=== PATIENT | male | born 1935 | race Caucasian/White ===

== ENCOUNTER → 2023-12-08 14:43 | Outpatient (REF) | payer OTHER, SELFPAY | LOC: RCS 14:43 | PROVIDERS: ATTENDING PHYSICIAN Internal Medicine Cardiovascular Disease; FAMILY PHYSICIAN Family Medicine | DX: Z95.2 Presence of prosthetic heart valve (principal) | CPT/HCPCS: 93306 ==

== ENCOUNTER 2024-05-24 20:13 | Inpatient (IN) | payer OTHER, SELFPAY ==
[2024-05-24 15:29] VITALS: BP 132/91
[2024-05-24 16:06] LABS: % Basophils 0.2 % (0-2); % Eosinophils 0.4 % (0-6); % Immature Granulocytes 0.8 % (0-0.5); % Lymphocytes 7.7 % (20.5-51.1); % Monocytes 6.9 % (1.7-9.3); Absolute Immature Granulocytes 0.1 10^3/uL (0-0.05); Absolute Lymphocytes 0.8 10^3/uL (1.2-3.4); Absolute Monocytes 0.7 10^3/uL (0.1-0.6); Absolute Neutrophils 8.2 10^3/uL (1.4-6.5); Hematocrit 44.2 % (39.0-52.0); Hemoglobin 14.4 g/dL (13.0-18.0); Mean Corp Hgb Conc. 32.6 g/dL (33.0-37.0); Mean Corpuscular Hgb 31.2 pg (27.0-31.0); Mean Corpuscular Volume 95.7 fL (80.0-94.0); Mean Platelet Volume 10.1 fL (7.4-10.4); Nucleated Red Blood Cells % 0 % (-); Platelet Count 186 10^3/uL (130-400); Red Blood Cell Count 4.62 10^6/uL (4.70-6.10); Red Cell Dist. Width 15.7 % (11.5-14.5); White Blood Cell Count 9.7 10^3/uL (4.8-10.8)
[2024-05-24 16:19] LABS: ALT (SGPT) 26 U/L (0-50); AST (SGOT) 45 U/L (17-59); Albumin 4.3 g/dl (3.5-5.0); Alkaline Phosphatase 73 U/L (38-126); Blood Urea Nitrogen 22 mg/dl (9-20); Calcium 9.7 mg/dl (8.4-10.2); Carbon Dioxide 29 mmol/L (22-30); Chloride 92 mmol/L (98-107); Glucose 129 mg/dl (70-99); Sodium 130 mmol/L (135-145); Total Bilirubin 1.3 mg/dl (0.2-1.3); Total Protein 7.4 g/dl (6.3-8.2); eGFR > 60.00
[2024-05-24 16:26] LABS: NT-proBNP 6000 pg/ml; Troponin I < 0.012 ng/ml
--- NOTE | 2024-05-24 17:30 | ED.GENMED ---
History of Present Illness
General
Chief Complaint: Cardiac Symptoms
Source: patient
Exam Limitations: none
Time Seen by Provider: 05/24/24 17:25
Nursing documentation reviewed up to this point in time: agreed with
History of Present Illness
History of Present Illness:
The patient is an 89-year-old man with a past medical history of atrial fibrillation who reports that he has been feeling short of breath on exertion, and has had swelling of his bilateral legs for several days. Patient reports he was evaluated by
his family consultant today and referred to the emergency department for evaluation. Patient also reports intermittent mild chest pressure. He denies chest pain at this time. He denies fever and cough.
Past History
Past History
ED Past Medical History: Arrthythmia, HTN and Other (Cardiomyopathy, aortic stenosis)
ED Past Surgical History: Urological
Social History
Tobacco: Other
Alcohol: Other
Drug: None
Personal: Other
Living: with family
Employment: Other
Family History
Family History: Other
Review of Systems
Review of Systems
Allergies reviewed?: Yes
All Other Systems: ROS reviewed and negative except as documented in HPI and ROS
Constitutional: Reports no symptoms
EENT: Reports no symptoms
Respiratory: Reports trouble breathing
Cardiac: Reports chest pain
ABD/GI: Reports no symptoms
: Reports no symptoms
Musculoskeletal: Reports edema
Skin: Reports no symptoms
Endocrine: Reports no symptoms
Hematologic/Lymphatic: Reports no symptoms
Psychiatric: Reports no symptoms
Phy Exam
Physical Exam
Physical Exam:
Physical Exam
General: Patient is tachypneic at rest. Nontoxic
Neck: supple. no meningeal signs. normal psoterior pharynx
Heart: Tachycardic, irregular
Lungs: Tachypneic at rest, diminished breath sounds bilaterally
Abdomen: normal bowel sounds. not tender. no CVAT
Neuro: alert and oriented. no focal neurological deficits
Skin: no rash
Psychiatric: well kept. interactive and cooperative
Extremities: 2+ pitting edema of bilateral lower extremities. Negative Homans' sign
Course
Orders/Labs/Results
Orders:
Orders
05/24/24 15:23
EKG [Electrocardiogram (*1)] Urgent
Reason for Study: Abnormal EKG
EKG- Treatment ONCE
05/24/24 15:56
Complete Blood Count/With Diff Urgent
Comprehensive Metabolic Panel Urgent
Pro-BNP [NT-proBNP] Urgent
Troponin I Urgent
05/24/24 17:53
Furosemide [Lasix] 40 mg IV NOW STA
05/24/24 17:54
CR Chest Portable - 1 View Urgent
Comment:
Reason For Exam: SOB, CHF
Reason Study Needs to be Portable: Patient Unstable
Abnormal Lab Results
05/24/24
15:56
RBC 4.62 L 10^6/uL
(4.70-6.10)
MCV 95.7 H fL
(80.0-94.0)
MCH 31.2 H pg
(27.0-31.0)
MCHC 32.6 L g/dL
(33.0-37.0)
RDW 15.7 H %
(11.5-14.5)
Abs Immat Gran (auto) 0.1 H 10^3/uL
(0-0.05)
Absolute Neuts (auto) 8.2 H 10^3/uL
(1.4-6.5)
Absolute Lymphs (auto) 0.8 L 10^3/uL
(1.2-3.4)
Absolute Monos (auto) 0.7 H 10^3/uL
(0.1-0.6)
Immature Gran % 0.8 H %
(0-0.5)
Neutrophils % 84.0 H %
(42.2-75.2)
Lymphocytes % 7.7 L %
(20.5-51.1)
Sodium 130 L mmol/L
(135-145)
Chloride 92 L mmol/L
(98-107)
BUN 22 H mg/dl
(9-20)
Glucose 129 H mg/dl
(70-99)
05/24/24 15:56
05/24/24 15:56
Vital Signs
Initial and Last Documented VS:
Initial Vital Signs
Temp Pulse Resp BP Pulse Ox
97.5 F 60 16 132/91 96
05/24/24 15:29 05/24/24 15:29 05/24/24 15:29 05/24/24 15:29 05/24/24 15:29
Last Documented Vital Signs
Temp Pulse Resp BP Pulse Ox
97.5 F 60 16 132/91 96
05/24/24 15:29 05/24/24 15:29 05/24/24 15:29 05/24/24 15:29 05/24/24 15:29
MDM/Problems Addressed
Differential Diagnosis Includes:
Acute CHF, DVT, pneumonia, ACS
MDM/Problems Addressed:
Patient presents with acute shortness of breath and bilateral leg edema
Chronic conditions affecting care:
Aortic stenosis, cardiomyopathy, atrial fibrillation
Chronic conditions affecting care: Cardiomyopathy
Acute Exacerbation and/or Progression of Chronic Illness:
Patient can have acute exacerbation of A-fib causing CHF.
Acute Exacerbation and/or Progression of Chronic Illness: Arrhythmia
*Radiology
Radiology exam reviewed: preliminary read by ED provider (Chest x-ray reviewed by me. Bilateral pleural effusions, right greater than left)
*Pulse Oximetry
Patient hypoxic: no
*EKG
Interpreted by ED Provider?: Yes
Interpretation: abnormal
Comparison EKG: changes noted
Rate: normal
Rhythm: a-fib
[place]: normal axis
Interval: normal interval
QRS Pattern: left bundle branch block
Ischemia: non-specific ST changes
*Decontamination Technician Interpretation
Rate: tachycardiac
Interpretation: abnormal
Rhythm: a-fib
*Critical Care Note
Total Time (30-74mins, 75-104mins- exclusive of procedures): Not Applicable
Data Reviewed
Review of Other/Old Records Reveals: Operative Reports (Cardiac echo EF of 55 to 60% in 2023)
Source: patient and family
Patient Management
Social determinants of health affecting care: Living situation and Strong social support
Discussion with other providers: Hospitalist
ED Attending Note
-
Portions of this chart may have been created with voice recognition software.� Occasional wrong word or��sound alike� substitutions may have occurred due to the inherent limitations of voice recognition software.
Discharge Plan
Departure
Patient Disposition: Admit
Date of Disposition: 05/24/24
Time of Disposition: 18:46
Admit to: Telemetry
Presentation/result/management discussed w/ accepting MD/DO: Hospitalist
Patient with high blood pressure during this ER visit?: Yes
Condition: Good
Covid-19: Not Applicable
Discharge Problem:
Acute CHF, Acute respiratory distress
Prescriptions:
No Action
simvastatin 40 MG tablet
40 mg PO QPM
warfarin [Coumadin] 5 MG tablet
5 mg PO SUMOTUFRSA
Patient Comments:
pt takes 5mg coumadin on tuesday,tuesday, , tuesday, tuesday, tuesday
aspirin 81 MG tablet,chewable
81 mg PO DAILY
acetaminophen [Tylenol Extra Strength] 500 MG tablet
1,000 mg PO DAILY
pantoprazole [Protonix] 20 MG tablet,delayed release (DR/EC)
40 mg PO DAILY
warfarin [Jantoven] 2.5 MG tablet
2.5 mg PO WETH
verapamil 120 MG tablet extended release
120 mg PO DAILY
metoprolol succinate 100 MG tablet extended release 24 hr
100 mg PO DAILY
Referrals:
Valerie Momin DO [Family Provider] -
Interventions
Interventions:
*Risk Screen - Suicide Last Done: 05/24/24 15:31
*General Assessment Last Done: 05/24/24 18:42
*Neglect/Abuse Screening Last Done: 05/24/24 15:31
*ED- Fall Risk Assessment Last Done: 05/24/24 18:42
ED- Pulmonary Assessment Last Done: 05/24/24 18:42
ED- Cardiac Assessment Last Done: 05/24/24 18:42
Discharge Date and Time
Print Language: TURKMEN
[2024-05-24] MEDS: LASIX 40 MG IV (18:03)
[2024-05-24 18:29] VITALS: BMI 32.0
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
--- NOTE | 2024-05-24 19:39 | W.PN.UPDATE ---
Update Note
Progress Note Update
This is an addendum to H&P written by MATERIAL HANDLING SUPERVISOR Talisha Bassett
I saw and examined the patient.
The MATERIAL HANDLING SUPERVISOR's note was reviewed and I agree with the note.
Comment:
Mr. Eliecer Quinonez is a 89 yo man with hx essential HTN, HLD, chronic atrial fibrillation on Eliquis, HARLEY on CPAP presents to the ER with progressive shortness of breath, LE swelling and weight gain.
Triage VS: T 97.5, P 60, RR 16, BP 132/91, SpO2 96%
LABS: WBC 9.7, Hg 14.14, PLT 186, Na 130, K+ 5.0, CO2 29, BUN 22, Cr 1.0, Glucose 129, liver enzymes WNL
Trop < 0.012
BNP 6000
EKG: Afib with LBBB
CXR
IMPRESSION:
Cardiomegaly.
Pulmonary vascularity slightly increased suggesting mild CHF with moderate right and small left pleural effusions.
Acute Heart Failure Exacerbation, unknown EF
-admit to telemetry
-continue Lasix 40mg IV BID
-TTE
-Cardiology consult
-daily weights, strict I/O
Atrial fibrillation
-SALES AND MERCHANDISING ASSOCIATE Verapamil, Metoprolol, Eliquis
Remainder of plan per MATERIAL HANDLING SUPERVISOR note
[2024-05-24 20:01] VITALS: BP 118/88
[2024-05-24 20:54] VITALS: BP 148/98; BMI 31.2
[2024-05-24 21:12] VITALS: BMI 31.2
[2024-05-24] MEDS: ELIQUIS 5 MG PO (21:33)
[2024-05-24 22:16] VITALS: BP 121/93
[2024-05-24] MEDS: TOPROL XL 50 MG PO (22:17)
--- NOTE | 2024-05-24 22:25 | PTCARENOTE ---
Pt admitted to room 2242. AFib with HR 120s on monitor. Pt ambulates with x 1 assist and RW. Denies pain. QUESADA. Pt oriented to the room, call jang in reach
[2024-05-25] VITALS (7 sets, daily range): BP systolic 84–137; BP diastolic 50–88; BMI 30.9
[2024-05-25 05:10] LABS: Blood Urea Nitrogen 19 mg/dl (9-20); Calcium 9.1 mg/dl (8.4-10.2); Carbon Dioxide 31 mmol/L (22-30); Chloride 93 mmol/L (98-107); Estimated Creatinine Clearance 54 ml/min; Glucose 112 mg/dl (70-99); HDL Cholesterol 53 mg/dl; LDL Cholesterol, Calculated 40 mg/dl; Magnesium 1.8 mg/dl (1.6-2.3); Potassium 4.4 mmol/L (3.5-5.1); Sodium 131 mmol/L (135-145); Total Cholesterol 113 mg/dl (50-199); Triglyceride 102 mg/dl (10-149); Very Low Density Lipoprotein 20 mg/dl (0-30); eGFR > 60.00
[2024-05-25 05:39] LABS: TSH Reflex To Free T4 2.21 uIU/ml (0.47-4.68)
--- NOTE | 2024-05-25 07:40 | W.PN.HOSP.TC ---
Today's Communication/Plan
-
See plan
Assessment / Plan
Assessment / Plan
Physical Exam
General: Not in acute distress
HEENT: Normocephalic, Moist mucous membranes and Atraumatic
Respiratory: Clear to Auscultation Bilaterally
Cardiac: S1/S2 and Irregularly Irregular Rhythm
GI: Soft, Non Tender, Non Distended and Normal Bowel Sounds
Musculoskeletal: No Cyanosis and Other (b/l LE edema)
Skin: Warm. Dry.
Neuro: AAO x 3 and Nonfocal/grossly intact
Psych: Calm
Assessment/Plan
89 y/o male with past medical history of essential hypertension, hyperlipidemia, CAD, heart failure, chronic atrial fibrillation on Eliquis, BPH, GERD, HTN, HLD and HARLEY on CPAP presented to the ER with progressive shortness of breath, bilateral
lower extremity swelling and weight gain of about 30 lbs above his baseline. He also reported chest pressure. On the day of presentation, he had been evaluated by his pugger helper, and sent to the emergency department for further evaluation.
Triage VS: T 97.5, P 60, RR 16, BP 132/91, SpO2 96%
LABS: WBC 9.7, Hg 14.14, PLT 186, Na 130, K+ 5.0, CO2 29, BUN 22, Cr 1.0, Glucose 129, liver enzymes WNL
Trop < 0.012
BNP 6000
EKG: Afib with LBBB
CXR
IMPRESSION:
Cardiomegaly.
Pulmonary vascularity slightly increased suggesting mild CHF with moderate right and small left pleural effusions.
Acute Heart Failure Exacerbation
Presentation with shortness of breath and weight gain
Acute hypoxic respiratory failure
New biventricular failure, RV dilated
-Continue to monitor in IVU
-Lasix 40 mg IV BID--> increased to 80 mg IV BID
-TTE with new biventricular failure, RV dilated, patient does have a history of virus in March 2024
-Increase Toprol XL from 50 mg daily to 50 mg BID
-Stop Verapamil given reduced ventricular function
-Cardiology consult
-Daily weights, strict I/O
-Cardiac cath on Tuesday05/28/24 unless troponins increase significantly before that
Neck Tightness
-Likely musculoskeletal
-Check troponins to ensure no ACS
Atrial fibrillation
-CARD GRINDER HELPER Verapamil stopped. Metoprolol succinate increased given new RV failure above
-Continue Eliquis
Hypervolemic hyponatremia
- Sodium lows 130s -- stable
- Diuretics, fluid restriction
- Monitor BMP
Coronary artery disease
-s/p TAVR
# BPH
- finasteride continued
# GERD
- Protonix continued
# Hyperlipidemia
- Statin continued
# Hypertension
- Medications as above
# DVT prophylaxis
- Eliquis
# CODE STATUS
- Full code
Anticipated Discharge: > 48 hours
Subjective/Interval History
-
Date of Service: May 25, 2024
Patient was seen and examined. He denied any chest pain, shortness of breath or any other complaints.
Objective Data
-
Labs:
Laboratory Results
05/25/24
04:31
Sodium 131 L
Potassium 4.4
Chloride 93 L
Carbon Dioxide 31 H
BUN 19
Creatinine 1.0
Glucose 112 H
Calcium 9.1
Vital Signs:
Vital Signs
Temp Pulse Resp BP Pulse Ox
97.7 F 97 20 105/50 99
05/25/24 07:32 05/25/24 05:15 05/25/24 07:32 05/25/24 04:25 05/25/24 07:32
I&O
05/24/24 05/25/24 05/26/24
06:59 06:59 06:59
Output Total 900 / 900
Balance -900 / -900
[2024-05-25] MEDS: LASIX 40 MG IV (08:34)
[2024-05-25] MEDS: PROSCAR 5 MG PO (08:34)
[2024-05-25] MEDS: LIPITOR 20 MG PO (08:34)
[2024-05-25] MEDS: ELIQUIS 5 MG PO ×2 (08:34→20:03)
[2024-05-25] MEDS: PROTONIX 40 MG PO (08:34)
--- NOTE | 2024-05-25 09:03 | W.PN.CD ---
Addendum entered and electronically signed by Messi Travis MD 05/25/24 13:06:
I saw and examined the patient.
The AUTOMOTIVE METALSMITH's note was reviewed and I agree with the note.
Comment: Patient had neck pain and feeling sweaty during TTE. He is feeling improved. He thinks his breathing is getting better. On exam, he has tenderness in the back of his neck, irregularly irregular rhythm with a rapid rate, he has a labored
respiratory effort using his abdomen to breathe. No rales or rhonchi are appreciated. Extremities have 2+ pitting edema through LUIS stockings up through the legs and thighs. Echocardiogram today shows new biventricular failure with reduced
function of the RV and the LV to approximate 20%. Rapid ventricular rhythm was noted. TAVR is stable. EKG shows A-fib with RVR and left bundle branch block. Overall, he is in severe CHF with a new Giovany reduced RV and LV function. Then his son
was at the bedside and adds to the history. He does report having a viral-like illness at the end of March. Differential diagnosis includes viral induced cardiomyopathy, tachycardia induced cardiomyopathy given he does not sense his atrial
fibrillation, less likely but still in differential is ischemia. Will check a troponin. Plan will be for aggressive diuresis and rate control over the weekend with a plan for a car catheterization on Tuesday. This can be done sooner if clinically
indicated. Will need to stop his verapamil given the LV dysfunction. Likely TAVR was stable on echo. Left bundle branch block has been seen in the past but seems to be intermittent. Plans discussed with son, patient and Dr. Morejon.
Original Note:
Today's Communication / Plan
-
continue IV diuresis
check echo
Impression / Plan
-
HFpEF - acute on chronic.
- agree with IV diuresis 40mg BID.
- monitor daily weights, I&Os.
- HF education, TEDS stockings.
- check echo today.
- consider SGLT2i or additional GDMT if LVEF is reduced on echo.
Afib - permanent.
- rates in 90s on Toprol and Verapamil, continue.
- OAC Eliquis 5mg BID.
TAVR - stable on echo 11/2023.
- update echo today.
CAD - nonobstructive disease on cath 2019.
- stable w/o angina.
HTN - stable, continue medical therapy.
Physical Exam
Vital Signs/Labs
Vital Signs
Temp Pulse Resp BP Pulse Ox
97.7 F 92 20 137/88 99
05/25/24 07:32 05/25/24 07:45 05/25/24 07:32 05/25/24 07:32 05/25/24 08:26
05/24/24 05/25/24 05/26/24
06:59 06:59 06:59
Actual Weight 191 lb 5.78 oz
05/24/24 15:56
05/25/24 04:31
Magnesium 1.8 mg/dl (1.6-2.3) 05/25/24 04:31
Triglycerides 102 mg/dl (10-149) 05/25/24 04:31
LDL Cholesterol, Calc 40 mg/dl 05/25/24 04:31
VLDL Cholesterol, Calc 20 mg/dl (0-30) 05/25/24 04:31
HDL Cholesterol 53 mg/dl 05/25/24 04:31
05/24/24
15:56
[id number] Pept 6000
LAB Results
05/24/24
15:56
Troponin I < 0.012
Physical Exam
Constitutional: No acute distress
EENT: Anicteric and Moist mucous membranes
Cardiovascular: Rhythm/rate is irregular and Pedal edema present (+2 pitting edema b/l LE )
Respiratory: Respiratory effort normal and Other (diminished b/l bases)
GI: Soft, Non tender and Normal bowel sounds
Neuro/Psych: AO x 3
Other: Skin (warm, dry)
Data Reviewed
-
Date of Service: May 25, 2024
EKG: Tracing Personally Visualized and interpreted (Afib, LBBB 100 bpm)
Echo: Report Reviewed by me (11/2023: TDS, EF 55-60%, normal RV size/function, s/p TAVR 23mm Silva 3 ultra TAVR mean gradient 11 mmHg, PASP 47 mmHg)
X-Ray/CT/US/MRI/NUC/PET: Report Reviewed by me (CXR: Pulmonary vascularity slightly increased suggesting mild CHF with moderate right and small left pleural effusions.)
Labs: Labs Reviewed by me
Old Records: Reviewed
[2024-05-25] MEDS: TOPROL XL 50 MG PO ×2 (11:14→20:04)
[2024-05-25] MEDS: TYLENOL 650 MG PO ×2 (12:37→20:07)
[2024-05-25 12:51] LABS: Troponin I < 0.012 ng/ml
--- NOTE | 2024-05-25 14:20 | CM ---
CM following for DC planning needs.
CM met w/ patient at bedside to complete initial assessment.
Pt. resides w/ son in a private, [facility]. Pt. is functionally indep. w/ ADLs, mobility with use of a rollator walker.
Pt. has no other DME in the home per his report.
Pt. is not open to VN.
Pt. has RX plan and uses [facility] in [facility] for prescription needs.
Goal is for home, no needs.
CM to follow.
--- NOTE | 2024-05-25 14:37 | CM ---
Priced the following medications thru patient's RX plan, [facility]- [phone] in the event that either medication is initiated:
Jardiance- est. $151/30 d supply
Farxiga- est. $ 144.76/ 30 d supply
[2024-05-25] MEDS: LASIX 80 MG IV (16:00)
--- NOTE | 2024-05-25 17:55 | PTCARENOTE ---
At @11:24 after a bedside Echo, pt reported 8/10 neck tightness, sweating and appeared short of breath which he denied. Pt in atrial fib @120's , 97% on 2L with resp rate of 24 and abdominal breathing pattern. Aleena Chen BURNER TENDER notified, ECG was
done. Pt seen soon after by , diuretic was increased , troponin was sent which was negative. Plan of care reviewed with him to aggressively diurese him over the weekend and have a cardiac cath next week. Pt stated understanding. Pt
given tylenol, back and neck massage and heating pad for neck discomfort with some relief. Pt noted to be at risk of falling, fall precautions in place, pt is calling for assistance. Telemetry shows atrial fib with LBBB at a rate of 100-120's
mainly.
[2024-05-26] VITALS (10 sets, daily range): BP systolic 81–119; BP diastolic 50–83
[2024-05-26 04:25] LABS: Blood Urea Nitrogen 21 mg/dl (9-20); Calcium 9.4 mg/dl (8.4-10.2); Carbon Dioxide 40 mmol/L (22-30); Chloride 88 mmol/L (98-107); Estimated Creatinine Clearance 45 ml/min; Glucose 116 mg/dl (70-99); Magnesium 1.8 mg/dl (1.6-2.3); Potassium 4.7 mmol/L (3.5-5.1); Sodium 133 mmol/L (135-145); eGFR 58.53
--- NOTE | 2024-05-26 07:43 | W.PN.HOSP.TC ---
Today's Communication/Plan
-
See plan
Assessment / Plan
Assessment / Plan
Physical Exam
General: Not in acute distress
HEENT: Normocephalic, Moist mucous membranes and Atraumatic
Respiratory: Clear to Auscultation Bilaterally
Cardiac: S1/S2 and Irregularly Irregular Rhythm
GI: Soft, Non Tender, Non Distended and Normal Bowel Sounds
Musculoskeletal: No Cyanosis and Other (b/l LE edema)
Skin: Warm. Dry.
Neuro: AAO x 3 and Nonfocal/grossly intact
Psych: Calm
Assessment/Plan
89 y/o male with past medical history of essential hypertension, hyperlipidemia, CAD, heart failure, chronic atrial fibrillation on Eliquis, BPH, GERD, HTN, HLD and HARLEY on CPAP presented to the ER with progressive shortness of breath, bilateral
lower extremity swelling and weight gain of about 30 lbs above his baseline. He also reported chest pressure. On the day of presentation, he had been evaluated by his store product demonstrator, and sent to the emergency department for further evaluation.
Triage VS: T 97.5, P 60, RR 16, BP 132/91, SpO2 96%
LABS: WBC 9.7, Hg 14.14, PLT 186, Na 130, K+ 5.0, CO2 29, BUN 22, Cr 1.0, Glucose 129, liver enzymes WNL
Trop < 0.012
BNP 6000
EKG: Afib with LBBB
CXR
IMPRESSION:
Cardiomegaly.
Pulmonary vascularity slightly increased suggesting mild CHF with moderate right and small left pleural effusions.
Acute Heart Failure Exacerbation
Presentation with shortness of breath and weight gain
Acute hypoxic respiratory failure
New biventricular failure, RV dilated
-Continue to monitor in IVU
-Lasix 40 mg IV BID--> increased on 05/25/24 to 80 mg IV BID, continue
-TTE with new biventricular failure, RV dilated, patient does have a history of virus in March 2024
-Increased on 05/25/24 Toprol XL from 50 mg daily to 50 mg BID
-Verapamil stopped given reduced ventricular function
-Cardiology consult appreciated
-Daily weights, strict I/O
-Cardiac cath on Tuesday05/28/24 unless symptoms change before then needing cath before that
-NPO after midnight TOMORROW night and hold Eliquis starting TOMORROW night
Neck Tightness
-Likely musculoskeletal
-Troponins negative
Atrial fibrillation
-UNHAIRING INSPECTOR Verapamil stopped. Metoprolol succinate increased given new RV failure above
-Continue Eliquis
Hypervolemic hyponatremia
- Sodium lows 130s -- stable
- Diuretics, fluid restriction
- Monitor BMP
Coronary artery disease
-s/p TAVR
# BPH
- finasteride continued
# GERD
- Protonix continued
# Hyperlipidemia
- Statin continued
# Hypertension
- Medications as above
# DVT prophylaxis
- Eliquis
# CODE STATUS
- Full code
Anticipated Discharge: > 48 hours
Subjective/Interval History
-
Date of Service: May 26, 2024
Patient was seen and examined. He denied any chest pain or shortness of breath or any other new symptoms or complaints.
Objective Data
-
Labs:
Laboratory Results
05/26/24
03:41
Sodium 133 L
Potassium 4.7
Chloride 88 L
Carbon Dioxide 40 H
BUN 21 H
Creatinine 1.2
Glucose 116 H
Calcium 9.4
Vital Signs:
Vital Signs
Temp Pulse Resp BP Pulse Ox
97.8 F 92 18 91/58 99
05/26/24 03:25 05/26/24 05:00 05/26/24 03:25 05/26/24 03:30 05/26/24 03:25
I&O
05/25/24 05/26/24 05/27/24
06:59 06:59 06:59
Output Total 900 / 900 2350 / 2350
Balance -900 / -900 -2350 / -2350
[2024-05-26] MEDS: TOPROL XL PO ×2 (08:02→22:44)
[2024-05-26] MEDS: LIPITOR 20 MG PO (08:12)
[2024-05-26] MEDS: PROTONIX 40 MG PO (08:12)
[2024-05-26] MEDS: ELIQUIS 5 MG PO ×2 (08:13→20:02)
[2024-05-26] MEDS: COLACE 100 MG PO ×2 (08:13→20:02)
[2024-05-26] MEDS: PROSCAR 5 MG PO (08:13)
[2024-05-26] MEDS: LASIX 80 MG IV ×2 (10:01→16:20)
--- NOTE | 2024-05-26 10:20 | W.PN.CD ---
Addendum entered and electronically signed by Messi Travis MD 05/26/24 14:06:
I saw and examined the patient.
The RACK ROOM WORKER's note was reviewed and I agree with the note.
Comment: He is feeling better, looks comfortable in the chair. On exam he nolonger uses abdomen to breath. His lungs cta, irreg irreg, 2+ pitting with TEDS. Assessment is HFrEF, new cmy will continue diuiresis, plan for cath tuesday, npo p mn
tomorrow and hold Eliquis tomorrow pm. Will continue bb for af as rates better.
Will follow
Original Note:
Today's Communication / Plan
-
-continue IV lasix
-cardiac cath on Tuesday (will place Eliquis on hold starting tomorrow evening and give full dose ASA in AM of procedure)
-continue increased BB as tolerated, velásquez SGLT2I
Impression / Plan
-
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
-continue IV diuresis, which requires intensive monitoring
-Echo 05/25/24: severely reduced left ventricular systolic function. Left ventricular ejection fraction is 15-20%. Global hypokinesis. Abnormal (paradoxical) septal motion consistent with right ventricular (RV) volume overload and/or elevated RV
end-diastolic pressure. Right ventricular enlargement with reduced systolic function. Well-seated, normally functioning bioprosthetic aortic valve (status post TAVR). Compared to the prior echo on 12/04/2023 left and right ventricular function were
normal on the prior study, this is a significant change in LV and RV function.
-regarding new cardiomyopathy: He does report having a viral-like illness at the end of March. Differential diagnosis includes viral induced cardiomyopathy, tachycardia induced cardiomyopathy given he does not sense his atrial fibrillation, less
likely but still in differential is ischemia. Trop WNL.
-Plan will be for aggressive diuresis and rate control over the weekend with a plan for cardiac catheterization on Tuesday. This can be done sooner if clinically indicated.
-as a result of reduced EF, verapamil stopped. Metoprolol dosing increased. Continue as able. BP was on low end this AM, but now improved so nursing will try and give metoprolol. Parameters in order. Otherwise, will velásquez SGLT2i. Other meds limited
by BP currently.
Afib - permanent.
- rates currently 90's
- continue increased metoprolol (as able- see above) and monitor telemetry
-continue Eliquis 5mg BID - will hold after tomorrow night's dose for cath Tuesday- resume post-cath when safe.
TAVR - stable on echo
CAD - nonobstructive disease on cath 2019.
-repeat cath Tuesday as above with new CM
-hold Eliquis after tomorrow night and give full dose ASA AM of cath
HTN -
-monitor with med adjustments, BP on low end at times
LBBB:
-Left bundle branch block has been seen in the past, but seems to be intermittent.
Physical Exam
Vital Signs/Labs
Vital Signs
Temp Pulse Resp BP Pulse Ox
97.9 F 94 18 111/83 97
05/26/24 07:51 05/26/24 07:51 05/26/24 07:51 05/26/24 10:01 05/26/24 07:51
05/25/24 05/26/24 05/27/24
06:59 06:59 06:59
Actual Weight 86.8 kg 84.4 kg
05/24/24 15:56
05/26/24 03:41
Magnesium 1.8 mg/dl (1.6-2.3) 05/26/24 03:41
Triglycerides 102 mg/dl (10-149) 05/25/24 04:31
LDL Cholesterol, Calc 40 mg/dl 05/25/24 04:31
VLDL Cholesterol, Calc 20 mg/dl (0-30) 05/25/24 04:31
HDL Cholesterol 53 mg/dl 05/25/24 04:31
05/24/24
15:56
Zcm-L-Hvertmtginj Pept 6000
LAB Results
05/24/24 05/25/24
15:56 12:18
Troponin I < 0.012 < 0.012
Physical Exam
Constitutional: No acute distress
EENT: Anicteric
Cardiovascular: Rhythm/rate is irregular and Pedal edema present (mild BLE)
Respiratory: Crackles Present (mild bases) and Other (on O2 by NC)
Neuro/Psych: AO x 3
Data Reviewed
-
Date of Service: May 26, 2024
EKG: Other (AFIB 90's)
Echo: Report Reviewed by me (as noted)
Labs: Labs Reviewed by me
[2024-05-26] MEDS: TOPROL XL 50 MG PO (12:47)
--- NOTE | 2024-05-26 18:02 | PTCARENOTE ---
Pt encouraged to sit OOB in chair earlier and has been up sitting up all day. O2 weaned down to 1 L/min earlier and will try him on RA now. knee high teds on bilat.
[2024-05-26] MEDS: FLUSH (NSS) 1 FLUSH IV (20:03)
--- NOTE | 2024-05-26 22:06 | PTCARENOTE ---
Received pt at change of shift OOB in chair. Family at bedside. Pt AAOx3. A-fib on the monitor. HR 100. Pt denies any pain or SOB. on 1.5L O2 with SpO2 96%. Pt educated on importance of fluid restriction. Verbalized understanding. Informed pt to
call before getting out of bed. Call jang within reach.
[2024-05-27] VITALS (7 sets, daily range): BP systolic 92–116; BP diastolic 56–86; BMI 29.0
[2024-05-27 04:12] LABS: Blood Urea Nitrogen 21 mg/dl (9-20); Carbon Dioxide 37 mmol/L (22-30); Chloride 86 mmol/L (98-107); Estimated Creatinine Clearance 41 ml/min; Glucose 111 mg/dl (70-99); Magnesium 1.8 mg/dl (1.6-2.3); Potassium 3.7 mmol/L (3.5-5.1); Sodium 131 mmol/L (135-145); eGFR 53.17
[2024-05-27] MEDS: TYLENOL 650 MG PO (04:49)
--- NOTE | 2024-05-27 05:15 | PTCARENOTE ---
Pt with c/o back pain. Gown strings tight across back-gown opened, Tylenol given and pt repositioned on his side. Pt also stated he felt a little dizzy b/p 100/76. afib on telemetry with rates 90-115
--- NOTE | 2024-05-27 08:20 | W.PN.CD ---
Today's Communication / Plan
-
hold lasix
continue bb
npo after midnight and eliquis hold tonight for cath tomorrow.
Impression / Plan
-
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
-continue IV diuresis, which requires intensive monitoring
-wt down from 198lbs to 179 will hold lasix today
-regarding new cardiomyopathy: He does report having a viral-like illness at the end of March. Differential diagnosis includes viral induced cardiomyopathy, tachycardia induced cardiomyopathy given he does not sense his atrial fibrillation, less
likely but still in differential is ischemia. Trop WNL.
-cath tomorrow
-BB increased as verapamil stopped, Will velásquez SGLT2i. Other meds limited by BP currently.
Afib - permanent.
- rates currently 90's
- continue increased metoprolol (as able- see above) and monitor telemetry
-continue Eliquis 5mg BID - will hold after tomorrow night's dose for cath Tuesday- resume post-cath when safe.
TAVR - stable on echo
CAD - nonobstructive disease on cath 2019.
-repeat cath Tuesday as above with new CM
-hold Eliquis after tomorrow night and give full dose ASA AM of cath
HTN -
-monitor with med adjustments, BP on low end at times
LBBB:
-Left bundle branch block has been seen in the past, but seems to be intermittent.
Subjective;
Sleeping well flat no complaints
Data:
Echo 05/25/24: severely reduced left ventricular systolic function. Left ventricular ejection fraction is 15-20%. Global hypokinesis. Abnormal (paradoxical) septal motion consistent with right ventricular (RV) volume overload and/or elevated RV
end-diastolic pressure. Right ventricular enlargement with reduced systolic function. Well-seated, normally functioning bioprosthetic aortic valve (status post TAVR). Compared to the prior echo on 12/04/2023 left and right ventricular function were
normal on the prior study, this is a significant change in LV and RV function.
Physical Exam
Vital Signs/Labs
Vital Signs
Temp Pulse Resp BP Pulse Ox
98.3 F 111 20 116/86 94
05/27/24 06:55 05/27/24 07:45 05/27/24 06:55 05/27/24 06:57 05/27/24 06:57
05/26/24 05/27/24 05/28/24
06:59 06:59 06:59
Actual Weight 186 lb 1.122 oz
05/24/24 15:56
05/27/24 03:07
Magnesium 1.8 mg/dl (1.6-2.3) 05/27/24 03:07
Triglycerides 102 mg/dl (10-149) 05/25/24 04:31
LDL Cholesterol, Calc 40 mg/dl 05/25/24 04:31
VLDL Cholesterol, Calc 20 mg/dl (0-30) 05/25/24 04:31
HDL Cholesterol 53 mg/dl 05/25/24 04:31
05/24/24
15:56
Yan-Z-Ugdznayydys Pept 6000
LAB Results
05/24/24 05/25/24
15:56 12:18
Troponin I < 0.012 < 0.012
Physical Exam
Constitutional: No acute distress
Cardiovascular: Pedal edema is absent, JVD pressure is normal, Systolic murmur absent, Diastolic murmur absent and Rhythm/rate is irregular
Respiratory: Respiratory effort normal, Lungs clear to auscul., Wheeze Absent and Crackles Absent
Neuro/Psych: AO x 3
Data Reviewed
-
Date of Service: May 27, 2024
EKG: Other (tele fib rate controlled)
--- NOTE | 2024-05-27 08:32 | W.PN.HOSP.TC ---
Today's Communication/Plan
-
NPO after midnight and eliquis hold tonight for cath tomorrow. Lasix stopped.
Assessment / Plan
Assessment / Plan
Physical Exam
General: Not in acute distress
HEENT: Normocephalic, Moist mucous membranes and Atraumatic
Respiratory: Clear to Auscultation Bilaterally
Cardiac: S1/S2 and Irregularly Irregular Rhythm
GI: Soft, Non Tender, Non Distended and Normal Bowel Sounds
Musculoskeletal: No Cyanosis and Other (b/l LE edema)
Skin: Warm. Dry.
Neuro: AAO x 3 and Nonfocal/grossly intact
Psych: Calm
Assessment/Plan
89 y/o male with past medical history of essential hypertension, hyperlipidemia, CAD, heart failure, chronic atrial fibrillation on Eliquis, BPH, GERD, HTN, HLD and HARLEY on CPAP presented to the ER with progressive shortness of breath, bilateral
lower extremity swelling and weight gain of about 30 lbs above his baseline. He also reported chest pressure. On the day of presentation, he had been evaluated by his director of strategic programs, and sent to the emergency department for further evaluation.
Triage VS: T 97.5, P 60, RR 16, BP 132/91, SpO2 96%
LABS: WBC 9.7, Hg 14.14, PLT 186, Na 130, K+ 5.0, CO2 29, BUN 22, Cr 1.0, Glucose 129, liver enzymes WNL
Trop < 0.012
BNP 6000
EKG: Afib with LBBB
CXR
IMPRESSION:
Cardiomegaly.
Pulmonary vascularity slightly increased suggesting mild CHF with moderate right and small left pleural effusions.
Acute Heart Failure Exacerbation
Presentation with shortness of breath and weight gain
Acute hypoxic respiratory failure
New biventricular failure, RV dilated
-Continue to monitor in IVU
-Lasix 40 mg IV BID--> increased on 05/25/24 to 80 mg IV BID --> now being held as per cardiology
-TTE with new biventricular failure, RV dilated, patient does have a history of virus in March 2024
-Increased on 05/25/24 Toprol XL from 50 mg daily to 50 mg BID
-Verapamil stopped given reduced ventricular function
-Cardiology consult appreciated
-Daily weights, strict I/O
-Cardiac cath on Tuesday05/28/24 unless symptoms change before then needing cath before that
-NPO after midnight and eliquis hold tonight for cath tomorrow. Lasix stopped.
Neck Tightness
-Likely musculoskeletal
-Troponins negative
Atrial fibrillation
-RESEARCH PROGRAMMER Verapamil stopped. Metoprolol succinate increased given new RV failure above
-Continue Eliquis
Hypervolemic hyponatremia
- Sodium lows 130s -- stable
- Diuretics, fluid restriction
- Monitor BMP
Coronary artery disease
-s/p TAVR
# BPH
- finasteride continued
# GERD
- Protonix continued
# Hyperlipidemia
- Statin continued
# Hypertension
- Medications as above
# DVT prophylaxis
- Eliquis
# CODE STATUS
- Full code
Anticipated Discharge: 24 - 48 hours
Subjective/Interval History
-
Date of Service: May 27, 2024
Patient was seen and examined. He denied any complaints.
Objective Data
-
Labs:
Laboratory Results
05/27/24
03:07
Sodium 131 L
Potassium 3.7
Chloride 86 L
Carbon Dioxide 37 H
BUN 21 H
Creatinine 1.3
Glucose 111 H
Calcium 9.0
Vital Signs:
Vital Signs
Temp Pulse Resp BP Pulse Ox
98.3 F 111 20 116/86 94
05/27/24 06:55 05/27/24 07:45 05/27/24 06:55 05/27/24 06:57 05/27/24 06:57
I&O
05/26/24 05/27/24 05/28/24
06:59 06:59 06:59
Intake Total 360 / 360
Output Total 2350 / 2350 2575 / 2575
Balance -2350 / -2350 -2215 / -2215
[2024-05-27] MEDS: PROTONIX 40 MG PO (09:11)
[2024-05-27] MEDS: LIPITOR 20 MG PO (09:12)
[2024-05-27] MEDS: COLACE 100 MG PO ×2 (09:12→19:42)
[2024-05-27] MEDS: ELIQUIS 5 MG PO (09:12)
[2024-05-27] MEDS: TOPROL XL 50 MG PO ×2 (09:13→19:43)
[2024-05-27] MEDS: PROSCAR 5 MG PO (09:13)
[2024-05-27] MEDS: LASIX IV (09:31)
--- NOTE | 2024-05-27 18:26 | PTCARENOTE ---
Pt on RA this afternoon, O2 sat 92-93%. He sat OOB in chair most of the day today, jackeline well.
[2024-05-27] MEDS: FLUSH (NSS) 1 FLUSH IV (19:43)
--- NOTE | 2024-05-27 22:45 | PTCARENOTE ---
Received pt at change of shift OOB in chair. Family at bedside. A-fib on the monitor. BP 109/76, HR 108. Denies any pain or SOB. SpO2 92% on RA. Assisted pt back to bed. Discussed with pt NPO status after midnight. pt verbalized understanding. Call
jang within reach.
[2024-05-28] VITALS (25 sets, daily range): BP systolic 86–122; BP diastolic 56–102; BMI 29.2
[2024-05-28 05:33] LABS: Blood Urea Nitrogen 24 mg/dl (9-20); Calcium 9.2 mg/dl (8.4-10.2); Carbon Dioxide 36 mmol/L (22-30); Chloride 87 mmol/L (98-107); Estimated Creatinine Clearance 43 ml/min; Glucose 123 mg/dl (70-99); Magnesium 1.9 mg/dl (1.6-2.3); Potassium 3.8 mmol/L (3.5-5.1); Sodium 130 mmol/L (135-145); eGFR > 60.00
[2024-05-28] MEDS: ASPIRIN 325 MG PO (06:32)
--- NOTE | 2024-05-28 06:34 | W.PN.HOSP.TC ---
Today's Communication/Plan
-
Post-cath care as per Cardio
Assessment / Plan
Assessment / Plan
Physical Exam
General: Not in acute distress, appears comfortable at this time
HEENT: Normocephalic, Moist mucous membranes and Atraumatic, hard of hearing
Respiratory: Clear to Auscultation Bilaterally
Cardiac: S1/S2 and Irregularly Irregular Rhythm, systolic murmur /
GI: Soft, Non Tender, Non Distended and Normal Bowel Sounds
Musculoskeletal: No Cyanosis, no edema lower ext's
Skin: Warm. Dry.
Neuro: awake alert conversant coherent
Psych: Calm
Assessment/Plan
89 y/o male with past medical history of essential hypertension, hyperlipidemia, CAD, heart failure, chronic atrial fibrillation on Eliquis, BPH, GERD, HTN, HLD and HARLEY on CPAP presented to the ER with progressive shortness of breath, bilateral
lower extremity swelling and weight gain of about 30 lbs above his baseline. He also reported chest pressure. On the day of presentation, he had been evaluated by his finishing machine operator, and sent to the emergency department for further evaluation.
Trop < 0.012
BNP 6000
EKG: Afib with LBBB
CXR
IMPRESSION:
Cardiomegaly.
Pulmonary vascularity slightly increased suggesting mild CHF with moderate right and small left pleural effusions.
Acute Heart Failure Exacerbation
Presentation with shortness of breath and weight gain
Acute hypoxic respiratory failure
New biventricular failure, RV dilated
-IVU admit
-Lasix 40 mg IV BID--> increased on 05/25/24 to 80 mg IV BID --> on hold as per cardio
-TTE with new biventricular failure, RV dilated
-Increased on 05/25/24 Toprol XL from 50 mg daily to 50 mg BID
-Verapamil stopped d/t reduced EF
-Cardiology consult appreciated
-Daily weights, strict I/O
Cardiac cath Tuesday05/28/24 appreciated
- extensive calcifications but no discrete stenosis, no ischemic source new cardiomyopathy
Cont hold Eliquis Lasix as per Cardio
Neck Tightness
-Likely musculoskeletal
-Troponins negative
Atrial fibrillation
-TEA BLENDER Verapamil stopped. Metoprolol succinate increased given new RV failure above
-Continue hold Eliquis as per Cardio
Hypervolemic hyponatremia
- Sodium lows 130s -- stable
- Diuretics, fluid restriction
- Monitor
Coronary artery disease
s/p TAVR
# BPH
- finasteride continued
# GERD
- Protonix continued
# Hyperlipidemia
- Statin continued
# Hypertension
- cotn metoprolol
# DVT prophylaxis
- Eliquis on hold as per cardio, SCD
# CODE STATUS
- Full code
discussed with patient and patient's edgar Vargas Jr
I spent a total of 40 minutes with the patient or on the floor. More than 50% of this time involved counseling and coordination of care.
Anticipated Discharge: 24 - 48 hours
Subjective/Interval History
-
Date of Service: May 28, 2024
Status post cath. stable respiratory status on room air. Reports pain from right groin cath site but otherwise no acute distress resting comfortably in bed. Edgar Vargas Jr present during evaluation.
Objective Data
-
Labs:
Laboratory Results
05/28/24
04:33
Sodium 130 L
Potassium 3.8
Chloride 87 L
Carbon Dioxide 36 H
BUN 24 H
Creatinine 1.1
Glucose 123 H
Calcium 9.2
Vital Signs:
Vital Signs
Temp Pulse Resp BP Pulse Ox
97.5 F 95 20 120/75 96
05/28/24 04:13 05/28/24 05:15 05/28/24 04:13 05/28/24 04:13 05/28/24 04:30
I&O
05/26/24 05/27/24 05/28/24
06:59 06:59 06:59
Intake Total 360 / 360 240 / 240
Output Total 2350 / 2350 2575 / 2575 500 / 500
Balance -2350 / -2350 -2215 / -2215 -260 / -260
--- NOTE | 2024-05-28 07:52 | W.PN.CD ---
Today's Communication / Plan
-
Cardiac catheterization to clarify coronary anatomy.
Case management to velásquez SGLT2i.
Impression / Plan
-
Impression/Plan: 89 y/o male with HTN, permanent atrial fibrillation, LBBB, severe aortic valve stenosis s/p TAVR (10/2019) and non-obstructive CAD on pre-TAVR cath admitted with new dilated cardiomyopathy and acute HFrEF.
#HFrEF/cardiomyopathy
-Acute on chronic HF, SUSTAINABLE COMMUNITIES DESIGNER is new.
-LVEF 15-20%, previously normal.
-Continue IV diuresis, which requires intensive monitoring
-Presentation weight 88.7 kg. Current weight 81.9 kg.
-Regarding new cardiomyopathy: He does report having a viral-like illness at the end of March. Differential diagnosis includes viral induced cardiomyopathy, tachycardia induced cardiomyopathy given he does not sense his atrial fibrillation, less
likely but still in differential is ischemia. Trop WNL.
-Metoprolol succinate increased to 50 mg BID and verapamil stopped.
-Will velásquez SGLT2i. Further GDMT currently limited by BP.
-Cardiac catheterization today to clarify coronary anatomy.
#Atrial fibrillation
-Permanent.
-Rates currently 90-110's.
-Rate control with metoprolol succinate 50 mg BID.
-CHADS2-Vasc = 5 (CHF, HTN, Age x2, vascular disease).
-Therapeutic anticoagulation with apixaban 5 mg BID, on hold for cath today. Resume post-cath.
#TAVR
-Chronic, stable on echo.
#CAD
-Chronic, nonobstructive disease on cath 2019.
-Repeat cath today as above with new CM.
#HTN
-Chronic, stable.
-Monitor with med adjustments.
#LBBB
-Left bundle branch block has been seen in the past, but seems to be intermittent.
Subjective/Interval History:
Weight up 0.5 kg after diuretics were held yesterday.
SaO2 92-93% on RA.
DATA:
Transthoracic Echocardiogram 05/25/2024:
CONCLUSIONS
Severely reduced left ventricular systolic function. Left ventricular ejection
fraction is 15-20%.
Global hypokinesis. Abnormal (paradoxical) septal motion consistent with right
ventricular (RV) volume overload and/or elevated RV end-diastolic pressure.
Right ventricular enlargement with reduced systolic function.
Well-seated, normally functioning bioprosthetic aortic valve (status post
TAVR).
Compared to the prior echo on 12/04/2023 left and right ventricular function
were normal on the prior study, this is a significant change in LV and RV
function.
Physical Exam
Vital Signs/Labs
Vital Signs
Temp Pulse Resp BP Pulse Ox
36.4 C 95 20 120/75 96
05/28/24 04:13 05/28/24 05:15 05/28/24 04:13 05/28/24 04:13 05/28/24 04:30
05/26/24 05/27/24 05/28/24
11:59 11:59 11:59
Actual Weight 84.4 kg 81.4 kg 81.9 kg
05/24/24 15:56
05/28/24 04:33
Magnesium 1.9 mg/dl (1.6-2.3) 05/28/24 04:33
Triglycerides 102 mg/dl (10-149) 05/25/24 04:31
LDL Cholesterol, Calc 40 mg/dl 05/25/24 04:31
VLDL Cholesterol, Calc 20 mg/dl (0-30) 05/25/24 04:31
HDL Cholesterol 53 mg/dl 05/25/24 04:31
05/24/24
15:56
Ypo-P-Dvuxyhppfqt Pept 6000
LAB Results
05/25/24
12:18
Troponin I < 0.012
Physical Exam
Constitutional: No acute distress and Comfortable
EENT: Anicteric and Moist mucous membranes
Cardiovascular: Pedal edema is absent, JVD pressure is normal, Rhythm/rate is irregular, S1S2 is normal and Murmur/rub/gallop absent
Respiratory: Respiratory effort normal and Other (Decreased throughout.)
GI: Soft, Distention absent, Flat, Non tender and Normal bowel sounds
Neuro/Psych: AO x 3
Data Reviewed
-
Date of Service: May 28, 2024
Medical Decision Making: Reviewed Test Results, Independent Historian Assessment and Test Interpretation
EKG: Tracing Personally Visualized and interpreted and Report Reviewed by me
Echo: Tracing Personally Visualized and interpreted and Report Reviewed by me
X-Ray/CT/US/MRI/NUC/PET: Image Personally Visualized and interpreted and Report Reviewed by me
Medical Tests (PFT, Pathology etc): Image Personally Visualized and interpreted and Report Reviewed by me
Labs: Labs Reviewed by me
Old Records: Reviewed
[2024-05-28] MEDS: LIPITOR 20 MG PO (09:22)
[2024-05-28] MEDS: PROTONIX 40 MG PO (09:22)
[2024-05-28] MEDS: TOPROL XL 50 MG PO (09:22)
[2024-05-28] MEDS: PROSCAR 5 MG PO (09:22)
[2024-05-28] MEDS: COLACE 100 MG PO ×2 (09:22→19:47)
--- NOTE | 2024-05-28 10:00 | CM ---
Reviewed chart. Met with Mr. Quinonez and his son to review discharge plans. He states he is going for a Cardiac Cath today. He states prior to admission he resides with his son in a one story home with four steps to enter. He states prior to
admission he ambulates with a rollator in the home and uses cane in the community. He states he has not been to a SNF/Rehab. He states he went to outpatient Cardiac Rehab. in the past. He states he has had [facility] in the past. He states he
has a prescription plan and uses [facility]. Will need to see his current functional level to see if he will have any skilled care needs. Medical work-up in progress. The discharge plan is to return home with his son and [facility] if
indicated and he is agreeable when medically stable.
--- NOTE | 2024-05-28 11:34 | ITS.CL.CATH ---
Extermination Supervisor - Catheterization
Cardiac Catheterization
Procedure Report:
CARDIAC CATHETERIZATION REPORT
Date of Procedure: 05/28/2024
Referring: Katarina Travis M.D.
INDICATION: New cardiomyopathy with acute HFrEF, prior TAVR.
PROCEDURE:
1. Left heart catheterization.
2. Coronary angiography
3. Successful IVUS of the left main coronary artery.
A total of 0 minutes of procedural/moderate sedation was utilized. An independent medical investigator was present to assist with and help manage the patient's level of consciousness and physiologic status.
ACCESS:
1. 6 Swazi right common femoral artery using a modified Seldinger technique with a micropuncture kit under ultrasound guidance. Ultrasound image obtained.
CATHETERS:
1. 5 Swazi JR4.
2. 5 Swazi JL 4.
3. 6 Swazi JL 4 guiding catheter.
HEMODYNAMIC DATA
Weight (kg): 81.6
AO (s/d/x, mmHg): 128/85/91
LV (s/x mmHg): 132/21
LEFT VENTRICULOGRAPHY: Not performed. A #23 ANGIE TAVR valve is observed in stable position.
CORONARY ANGIOGRAPHY
Dominance: Right.
Left Main: Normal size, bifurcating vessel. There is a hazy opacity in the proximal to mid vessel of unclear severity.
LAD: Normal size vessel giving rise to 2 diagonals. There is dense external calcification with minor luminal irregularities.
Ramus: Congenitally absent.
Circumflex: Normal size, nondominant vessel giving rise to 1 significant diagonal. There is calcification and minor luminal irregularities throughout.
RCA: Normal size, dominant vessel. There is dense calcification and minor luminal irregularities.
INTERVENTION(S)
1. Successful IVUS of the left main coronary artery to evaluate the hazy left main opacity, revealing dense calcification of the LMCA midshaft but no discrete stenosis.
Narrative:
The decision was made to perform intracoronary imaging. The diagnostic catheter was removed over a wire and exchanged for 6 Swazi JL 4 guiding catheter. The guiding catheter was advanced into the ascending aorta and seated in the left main
coronary artery. Additional heparin was given to obtain an ACT greater than 250 seconds. After crossing the lesion with a coronary wire, an IVUS catheter was advanced through the guiding catheter and into the ostium of the artery. Ring down was
performed once the imaging crystal was no longer inside of the guiding catheter. The IVUS catheter was advanced into the proximal circumflex. Intravascular ultrasound was performed in a retrograde fashion using a slow pullback. Intracoronary imaging
demonstrated diffuse, mild to moderate atherosclerotic disease throughout with an area of dense calcification within the midshaft of the left main coronary artery. There was no discrete stenosis. Minimal luminal area in the left main coronary
artery was 8.1 mm�.
Closure Device: 6 Swazi Angio-Seal.
Radiation (mGy): 618.75
DAP (cm2.Gy): 40.0433
Fluoroscopy time (minutes): 4.4
CONCLUSIONS
1. Right dominant circulation with dense external calcification of the entire coronary tree with luminal irregularities throughout and a hazy, poorly defined lesion in the proximal to mid shaft of the left main coronary artery of unclear severity,
status post successful IVUS demonstrating dense calcification of the left main coronary artery but no discrete stenosis and a minimal luminal area of 8.1 mm�.
2. No ischemic source of new cardiomyopathy/HFrEF.
3. Moderately elevated filling pressures (LVEDP = 21 mmHg at 81.6 kg).
4. Status post #23 ANGIE S3 TAVR with a mean pullback gradient of 6.5 mmHg.
RECOMMENDATIONS:
1. Expectant management after cardiac catheterization via right common femoral approach.
2. Limited weight bearing for one week.
3. GDMT as hemodynamics will tolerate.
4. Aggressive primary prevention with high-dose, high potency statin.
Copy to: Katarina Travis M.D., Eric Tyler M.D., Valerie Momin D.O.
Alan Harley, DO, FACC, FACP
--- NOTE | 2024-05-28 11:50 | PTCARENOTE ---
Received pt from greenhouse laborer, VSS, monitor showing afib. Right groin dressing with serosanguineous drainage noted and marked. No active bleeding or hematoma noted, +pedal pulses via doppler. Tolerating juice, instructed to remain flat in bed. Family
at bedside, call jang in reach.
[2024-05-28] MEDS: TYLENOL 650 MG PO (13:38)
[2024-05-28 14:43] LABS: ACT-LR - POC > 397 Seconds (116-155)
--- NOTE | 2024-05-28 16:46 | PTCARENOTE ---
Right groin dressing saturated, site slowly oozing. Pressure held for 15 minutes, DSTAT and new dressing applied. Pt on bedrest for additional hour per Cindy Skinner NP.
[2024-05-28] MEDS: TOPROL XL PO (19:47)
[2024-05-28] MEDS: ELIQUIS 5 MG PO (20:51)
--- NOTE | 2024-05-28 22:57 | PTCARENOTE ---
Patient received at change of shift out of bed to the chair. Right groin site with gauze and tegaderm C/D/I, pedal pulse obtainable with doppler. Patient denies chest pain. Offers no complaints at this time. Oxygen saturation 95-97% on room air.
Afib on telemetry. Plan of care discussed with patient. Call jang within reach. Care ongoing.
[2024-05-29] VITALS (10 sets, daily range): BP systolic 98–139; BP diastolic 67–103; BMI 29.3
[2024-05-29] MEDS: TOPROL XL 50 MG PO ×3 (03:12→21:52)
[2024-05-29 03:35] LABS: Hemoglobin 14.1 g/dL (13.0-18.0); Mean Corp Hgb Conc. 33.6 g/dL (33.0-37.0); Mean Corpuscular Hgb 31.3 pg (27.0-31.0); Mean Corpuscular Volume 93.1 fL (80.0-94.0); Mean Platelet Volume 10.2 fL (7.4-10.4); Platelet Count 196 10^3/uL (130-400); Red Blood Cell Count 4.51 10^6/uL (4.70-6.10); Red Cell Dist. Width 15.1 % (11.5-14.5); White Blood Cell Count 9.1 10^3/uL (4.8-10.8)
[2024-05-29 03:59] LABS: Blood Urea Nitrogen 25 mg/dl (9-20); Calcium 9.3 mg/dl (8.4-10.2); Carbon Dioxide 32 mmol/L (22-30); Chloride 87 mmol/L (98-107); Estimated Creatinine Clearance 43 ml/min; Glucose 129 mg/dl (70-99); Phosphorus 3.6 mg/dl (2.5-4.5); Potassium 4.3 mmol/L (3.5-5.1); Sodium 130 mmol/L (135-145); eGFR > 60.00
--- NOTE | 2024-05-29 04:29 | PTCARENOTE ---
Patient's heart rate noted to be sustaining in the 110s-130s. Patient denies palpitations and/or chest pain. Right groin site remains C/D/I. Reached out to house ACCOUNTS SUPERVISOR, one time dose of metoprolol ordered and given. Care ongoing.
--- NOTE | 2024-05-29 06:23 | W.PN.HOSP.TC ---
Today's Communication/Plan
-
rhythm rate control diuresis as per Cardio
daily weight I/O
fluid restriction
eventual PT/OT eval when cleared to participate as per Cardio
Bowel regimen
low dose ativan prn
check EKG QTc
Assessment / Plan
Assessment / Plan
Physical Exam
General: Not in acute distress, appears comfortable at this time
HEENT: Normocephalic, Moist mucous membranes and Atraumatic, hard of hearing
Respiratory: Clear to Auscultation Bilaterally
Cardiac: S1/S2 and Irregularly Irregular Rhythm, systolic murmur 04/19
GI: Soft, Non Tender, Distended, Decreased bowel sounds
Musculoskeletal: No Cyanosis, no edema lower ext's
Skin: Warm. Dry.
Neuro: awake alert conversant coherent
Psych: Calm
Assessment/Plan
89 y/o male with past medical history of essential hypertension, hyperlipidemia, CAD, heart failure, chronic atrial fibrillation on Eliquis, BPH, GERD, HTN, HLD and HARLEY on CPAP presented to the ER with progressive shortness of breath, bilateral
lower extremity swelling and weight gain of about 30 lbs above his baseline. He also reported chest pressure. On the day of presentation, he had been evaluated by his latin professor, and sent to the emergency department for further evaluation.
Trop < 0.012
BNP 6000
EKG: Afib with LBBB
CXR
IMPRESSION:
Cardiomegaly.
Pulmonary vascularity slightly increased suggesting mild CHF with moderate right and small left pleural effusions.
Acute Heart Failure Exacerbation
Presentation with shortness of breath and weight gain
Acute hypoxic respiratory failure
New biventricular failure, RV dilated
Hx TAVR
-IVU admit
-Lasix 40 mg IV BID--> increased on 05/25/24 to 80 mg IV BID --> on hold as per cardio
-TTE with new biventricular failure, RV dilated
-Increased on 05/25/24 Toprol XL from 50 mg daily to 50 mg BID
-Verapamil stopped d/t reduced EF
-Cardiology consult appreciated
-Daily weights, strict I/O
Cardiac cath Tuesday05/28/24 appreciated
- extensive calcifications but no discrete stenosis, no ischemic source new cardiomyopathy
-TAVR stable
Lasix held and Eliquis resumed as per Cardio
Cholesterol Lowering Diet, Salt restriction, Fluid restriction 50 oz
05/29 Anxious, reporting 'jitteriness,' poor sleep overnight, feeling as though items are moving in his vision
-suspect vision issues due to increased metoprolol (received a late Evening dose at 3AM previously held d/t hypotension and his routine morning dose 8AM)
-Possible metabolic encephalopathy vs hospital associate delirium
-Low dose prn PO ativan, avoiding QT prolonging agents d/t QT prolongation noted on last EKG 05/25
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
Nausea belching appetite loss likely d/t severe Constipation
-endorses bowel movements but small and hard
-abd X-ray appreciated moderate volume widespread colonic stool
-cont bowel regimen miralax, senna, colace
-considering suppository vs enema if constipation persists
Neck Tightness
-Likely musculoskeletal
-Troponin negative x2
-resolved
Atrial fibrillation
-PRINTING ASSISTANT Verapamil stopped. Metoprolol succinate increased given new RV failure above
-Continue Eliquis
Mild Hyponatremia
monitor
fluid restriction
Coronary artery disease
s/p TAVR
# BPH
- finasteride continued
# GERD
- Protonix continued
# Hyperlipidemia
- Statin continued
# Hypertension
- cont metoprolol
# DVT prophylaxis
Eliquis
# CODE STATUS
- Full code
discussed with patient and patient's son Jameson
I spent a total of 50 minutes with the patient or on the floor. More than 50% of this time involved counseling and coordination of care.
Anticipated Discharge: 24 - 48 hours
Subjective/Interval History
-
Date of Service: May 29, 2024
sitting up in chair reporting 'jitteriness,' anxious, and 'seeing things that are not there,' starting some time overnight. Son Alfa at bedside noted patient had called him in the middle night to take him home. Patient also endorsed abd
distension/discomfort appetite loss persistent belching and small hard bowel movements.
Objective Data
-
Labs:
Laboratory Results
05/29/24
02:57
WBC 9.1
Hgb 14.1
Hct 42.0
Plt Count 196
Sodium 130 L
Potassium 4.3
Chloride 87 L
Carbon Dioxide 32 H
BUN 25 H
Creatinine 1.1
Glucose 129 H
Calcium 9.3
Vital Signs:
Vital Signs
Temp Pulse Resp BP Pulse Ox
98.7 F 113 20 117/87 93
05/29/24 02:49 05/29/24 05:30 05/29/24 03:11 05/29/24 03:13 05/29/24 02:49
I&O
05/27/24 05/28/24 05/29/24
06:59 06:59 06:59
Intake Total 360 / 360 240 / 240 660 / 660
Output Total 2575 / 2575 500 / 500 500 / 500
Balance -2215 / -2215 -260 / -260 160 / 160
[2024-05-29] MEDS: PROTONIX 40 MG PO (08:35)
[2024-05-29] MEDS: COLACE 100 MG PO (08:36)
[2024-05-29] MEDS: PROSCAR 5 MG PO (08:36)
[2024-05-29] MEDS: LIPITOR 20 MG PO (08:36)
[2024-05-29] MEDS: ELIQUIS 5 MG PO ×2 (08:36→21:53)
[2024-05-29] MEDS: FLUSH (NSS) 1 FLUSH IV (08:36)
--- NOTE | 2024-05-29 08:50 | W.PN.CD ---
Today's Communication / Plan
-
await CT
titrate beta radha for rate control
further GDMT based on BP. remains off verapamil
Impression / Plan
-
Impression/Plan: 89 y/o male with HTN, permanent atrial fibrillation, LBBB, severe aortic valve stenosis s/p TAVR (10/2019) and non-obstructive CAD on pre-TAVR cath admitted with new dilated cardiomyopathy and acute HFrEF.
#HFrEF/cardiomyopathy( nonischmeic )
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
-LVEF 15-20%, previously normal.
- NONISCHEMIC CM - ETIOLOGY unclear may be post viral . tachycardia induced also a consideration
-Continue IV diuresis, which requires intensive monitoring
-Presentation weight 88.7 kg. Current weight 81.9 kg.
-Metoprolol succinate increased to 50 mg BID and verapamil stopped.
-Will velásquez SGLT2i.
- GDMT earlier this admit limited by BP. BP incrased atrer stopping Verapamil. will titrate BB
-Cardiac catheterization today to clarify coronary anatomy.
#Atrial fibrillation
-Permanent.
-Rates suboptimal control with SBP 120s
-Rate control with metoprolol succinate 50 mg BID.
-CHADS2-Vasc = 5 (CHF, HTN, Age x2, vascular disease).
-Therapeutic anticoagulation with apixaban 5 mg BID, on hold for cath today.
- ELIQUIS
- TITRATE BB
#TAVR
-Chronic, stable on echo.
- cath gradient6.5
# head feels funny - patient alvarez s difficulty describing symptom. Initially used word anxious but not clearly anxiety. he almost feels like items are moving in his vision. No other focal neuro signs. cause unclear. Consdier neurologic issues, vertigo
ro med effect. Possbiel he dose not feel as well on higher beta radha. Other med change was simvastatin to atorvastatin
- reviewed with hospitalist
- await CT
#CAD
-Chronic, nonobstructive disease on cath 2019.
-stable by cath
#HTN
-Chronic, stable.
-Monitor with med adjustments.
#LBBB
-Left bundle branch block has been seen in the past, but seems to be intermittent.
Subjective/Interval History:
Weight up 0.5 kg after diuretics were held yesterday.
SaO2 92-93% on RA.
DATA:
Transthoracic Echocardiogram 05/25/2024:
CONCLUSIONS
Severely reduced left ventricular systolic function. Left ventricular ejection
fraction is 15-20%.
Global hypokinesis. Abnormal (paradoxical) septal motion consistent with right
ventricular (RV) volume overload and/or elevated RV end-diastolic pressure.
Right ventricular enlargement with reduced systolic function.
Well-seated, normally functioning bioprosthetic aortic valve (status post
TAVR).
Compared to the prior echo on 12/04/2023 left and right ventricular function
were normal on the prior study, this is a significant change in LV and RV
function.
CARDIAC CATH 05/28/24
CONCLUSIONS
1. Right dominant circulation with dense external calcification of the entire coronary tree with luminal irregularities throughout and a hazy, poorly defined lesion in the proximal to mid shaft of the left main coronary artery of unclear severity,
status post successful IVUS demonstrating dense calcification of the left main coronary artery but no discrete stenosis and a minimal luminal area of 8.1 mm�.
2. No ischemic source of new cardiomyopathy/HFrEF.
3. Moderately elevated filling pressures (LVEDP = 21 mmHg at 81.6 kg).
4. Status post #23 ANGIE S3 TAVR with a mean pullback gradient of 6.5 mmHg.
Physical Exam
Vital Signs/Labs
Vital Signs
Temp Pulse Resp BP Pulse Ox
97.9 F 118 16 138/97 95
05/29/24 07:04 05/29/24 07:02 05/29/24 07:04 05/29/24 07:02 05/29/24 07:04
05/28/24 05/29/24 05/30/24
06:59 06:59 06:59
Actual Weight 81.9 kg 82.2 kg
05/29/24 02:57
05/29/24 02:57
Magnesium 2.0 mg/dl (1.6-2.3) 05/29/24 02:57
Triglycerides 102 mg/dl (10-149) 05/25/24 04:31
LDL Cholesterol, Calc 40 mg/dl 05/25/24 04:31
VLDL Cholesterol, Calc 20 mg/dl (0-30) 05/25/24 04:31
HDL Cholesterol 53 mg/dl 05/25/24 04:31
05/24/24
15:56
Anz-A-Dsajrlmbeug Pept 6000
Physical Exam
Constitutional: No acute distress
Cardiovascular: Rhythm/rate is irregular
Respiratory: Wheeze Absent and Rhonchi Absent
GI: Soft
Neuro/Psych: Alert
Data Reviewed
-
Date of Service: May 29, 2024
Medical Decision Making: Reviewed Test Results
Echo: Report Reviewed by me
Labs: Labs Reviewed by me
--- NOTE | 2024-05-29 08:52 | PTCARENOTE ---
Addendum entered by Rocio Ivory RN 05/29/24 09:37:
He also stated that he is 'seeing people' including visual disturbances that he has trouble describing
Addendum entered by Rocio Ivory RN 05/29/24 08:59:
He son thinks he dad is a little confused. The patient answers all questions correctly but has trouble describing how he feels.
Original Note:
In to see the patient. He states 'I don't feel right. I feel jittery. I must be anxious. I don't know, I want to go home'. His HR was in the 120s with Afib showing on the monitor. His BP is stable at 132/97. He denies feeling any palpations. He also
states that his stomach has not been right for the past week or so. He claims he did have a small BM last night. He states that he belches a lot and 'feel full.' He did get lightheaded when he stood to get into the chair but that subsided.
[2024-05-29] MEDS: SENOKOT 8.6 MG PO (09:32)
[2024-05-29] MEDS: ATIVAN 0.25 MG PO (09:32)
[2024-05-29] MEDS: MIRALAX 17 GRAMS PO (09:32)
--- NOTE | 2024-05-29 14:58 | CM ---
Reviewed chart. Met with Mr. Quinonez and his sons to review discharge plans. Son expressed concerns about his sleeping alot today. They are awaiting test results. Prior to admission Mr. Quinonez reside s with his son in a one story home with four
steps to enter. Prior to admission he ambulates with a rollator in the home and uses a single point cane in the community. He has had VNA Services in the past. He has never been to a SNF/Rehab. He did go to outpatient Cardiac Rehab. in the past.
He has a prescription plan and uses [facility]. Will need to see his current functional level to see if he will have any skilled care needs. Medical work-up in progress. The discharge plan is return home with his son and VNA services if
indicated when medically stable.
[2024-05-29] MEDS: SENOKOT-S 1 TABLET PO (21:53)
[2024-05-30] VITALS (8 sets, daily range): BP systolic 95–110; BP diastolic 59–86; BMI 29.0
--- NOTE | 2024-05-30 01:27 | PTCARENOTE ---
Pt rec'd at beginning of shift resting in bed with family sitting in room. Pt difficult to arouse, eyes closed, mouth open. VS stable afib.
At 2144 pt much more alert assisted oob to bathroom. gait steady with walker. Passed large formed BM. Pt oriented to name,, Yr and president. Pt does forget place and month. Right groin stable with DDI.
[2024-05-30 04:42] LABS: Hematocrit 41.9 % (39.0-52.0); Mean Corp Hgb Conc. 33.4 g/dL (33.0-37.0); Mean Corpuscular Hgb 31.5 pg (27.0-31.0); Mean Corpuscular Volume 94.4 fL (80.0-94.0); Mean Platelet Volume 10.5 fL (7.4-10.4); Platelet Count 182 10^3/uL (130-400); Red Blood Cell Count 4.44 10^6/uL (4.70-6.10); Red Cell Dist. Width 15.1 % (11.5-14.5); White Blood Cell Count 8.2 10^3/uL (4.8-10.8)
[2024-05-30 04:57] LABS: Blood Urea Nitrogen 22 mg/dl (9-20); Calcium 9.5 mg/dl (8.4-10.2); Carbon Dioxide 33 mmol/L (22-30); Chloride 88 mmol/L (98-107); Estimated Creatinine Clearance 52 ml/min; Glucose 141 mg/dl (70-99); Magnesium 1.9 mg/dl (1.6-2.3); Phosphorus 3.8 mg/dl (2.5-4.5); Potassium 4.3 mmol/L (3.5-5.1); Sodium 130 mmol/L (135-145); eGFR > 60.00
--- NOTE | 2024-05-30 06:01 | PTCARENOTE ---
Pt with c/o right hip pain 'arthritic' per pt. House MANAGER FLEET contacted for 'Bengay' like cream.
[2024-05-30] MEDS: LIDOCAINE 4% PATCH 1 PATCH TOPICAL (06:10)
--- NOTE | 2024-05-30 06:51 | W.PN.HOSP.TC ---
Today's Communication/Plan
-
rhythm rate control diuresis as per Cardio
daily weight I/O
fluid restriction
PT/OT
Bowel regimen
Assessment / Plan
Assessment / Plan
Physical Exam
General: Not in acute distress, appears comfortable at this time
HEENT: Normocephalic, Moist mucous membranes and Atraumatic, hard of hearing
Respiratory: Clear to Auscultation Bilaterally
Cardiac: S1/S2 and Irregularly Irregular Rhythm, systolic murmur /
GI: Soft, Non Tender, non-distended, bowel sounds present
Musculoskeletal: No Cyanosis, no edema lower ext's
Skin: Warm. Dry.
Neuro: awake alert conversant coherent
Psych: Calm
Assessment/Plan
89 y/o male with past medical history of essential hypertension, hyperlipidemia, CAD, heart failure, chronic atrial fibrillation on Eliquis, BPH, GERD, HTN, HLD and HARLEY on CPAP presented to the ER with progressive shortness of breath, bilateral
lower extremity swelling and weight gain of about 30 lbs above his baseline. He also reported chest pressure. On the day of presentation, he had been evaluated by his plastic tubing insulation supervisor, and sent to the emergency department for further evaluation.
Trop < 0.012
BNP 6000
EKG: Afib with LBBB
CXR
IMPRESSION:
Cardiomegaly.
Pulmonary vascularity slightly increased suggesting mild CHF with moderate right and small left pleural effusions.
Acute Heart Failure Exacerbation
Presentation with shortness of breath and weight gain
Acute hypoxic respiratory failure
New biventricular failure, RV dilated
Hx TAVR
-IVU admit
-Lasix 40 mg IV BID--> increased on 05/25/24 to 80 mg IV BID --> on hold as per cardio
-TTE with new biventricular failure, RV dilated
-Toprol XL titrated up from 50 mg daily to 75 mg BID as per Cardio
-Verapamil stopped d/t reduced EF
-Cardiology consult appreciated
-Daily weights, strict I/O
Cardiac cath Tuesday05/28/24 appreciated
- extensive calcifications but no discrete stenosis, no ischemic source new cardiomyopathy
-TAVR stable
Lasix held and Eliquis resumed as per Cardio
Cholesterol Lowering Diet, Salt restriction, Fluid restriction 50 oz
05/29 Anxious, reporting 'jitteriness,' poor sleep overnight, feeling as though items are moving in his vision
-Possible metabolic encephalopathy vs hospital associate delirium vs post-anesthesia side effects recent cath and poor sleep overnight
-Low dose prn PO ativan, avoiding QT prolonging agents d/t QT prolongation
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
-symptoms since resolved
Nausea belching appetite loss likely d/t severe Constipation
-endorses bowel movements but small and hard
-abd X-ray appreciated moderate volume widespread colonic stool
-cont bowel regimen miralax, senna, colace
-constipation since improved/resolved
Atrial fibrillation
QT prolongation
-RUBBER LINER Verapamil stopped. Metoprolol succinate increased given new RV failure above
-Continue Eliquis
-avoid QT prolonging agents as possible
Mild Hyponatremia
monitor
fluid restriction
Coronary artery disease
s/p TAVR
# BPH
- finasteride continued
# GERD
- Protonix continued
# Hyperlipidemia
- Statin continued
# Hypertension
- cont metoprolol
# DVT prophylaxis
Eliquis
# CODE STATUS
- Full code
discussed with patient and patient's son Jameson
I spent a total of 45 minutes with the patient or on the floor. More than 50% of this time involved counseling and coordination of care.
Anticipated Discharge: 24 - 48 hours
Subjective/Interval History
-
Date of Service: May 30, 2024
no acute distress. Reports feeling well. Anxiousness, vision issues, constipation resolved.
Objective Data
-
Labs:
Laboratory Results
05/30/24
04:07
WBC 8.2
Hgb 14.0
Hct 41.9
Plt Count 182
Sodium 130 L
Potassium 4.3
Chloride 88 L
Carbon Dioxide 33 H
BUN 22 H
Creatinine 0.9
Glucose 141 H
Calcium 9.5
Vital Signs:
Vital Signs
Temp Pulse Resp BP Pulse Ox
98.3 F 110 20 104/81 93
05/30/24 03:57 05/30/24 03:57 05/30/24 03:57 05/30/24 03:57 05/30/24 03:57
I&O
05/28/24 05/29/24 05/30/24
06:59 06:59 06:59
Intake Total 240 / 240 660 / 660 240 / 240
Output Total 500 / 500 500 / 500
Balance -260 / -260 160 / 160 240 / 240
--- NOTE | 2024-05-30 09:34 | W.PN.CD ---
Today's Communication / Plan
-
Patient was maintained on Toprol-XL 50 mg twice daily he is no longer having the head symptoms he had yesterday. Based on the above it does not appear that yesterday symptoms were related to metoprolol. Would continue current therapy and can
titrate for additional rate control. Will not resume verapamil due to cardiomyopathy.
Rate control of A-fib remains suboptimal.
Patient's main complaint is abdominal distention. He reports constipation although the patient did have a bowel movement earlier today. Management as directed by primary team.
Impression / Plan
-
Impression/Plan: 89 y/o male with HTN, permanent atrial fibrillation, LBBB, severe aortic valve stenosis s/p TAVR (10/2019) and non-obstructive CAD on pre-TAVR cath admitted with new dilated cardiomyopathy and acute HFrEF.
#HFrEF/cardiomyopathy( nonischmeic )
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
-LVEF 15-20%, previously normal.
- NONISCHEMIC CM - ETIOLOGY unclear may be post viral . tachycardia induced also a consideration
-Continue IV diuresis, which requires intensive monitoring
-Presentation weight 88.7 kg. Current weight 81.9 kg.
-Metoprolol succinate increased to 50 mg BID and verapamil stopped.
-Will velásquez SGLT2i.
- GDMT earlier this admit limited by BP. BP incrased atrer stopping Verapamil. will titrate BB
-Cardiac catheterization this admit without obstructive disease
#Atrial fibrillation
-Permanent.
-Rates suboptimal control
- metoprolol succinate 50 mg BID. ( verapamil discontinued due to CM)
-CHADS2-Vasc = 5 (CHF, HTN, Age x2, vascular disease).
-Therapeutic anticoagulation with apixaban 5 mg BID, on hold for cath today.
- ELIQUIS
- TITRATE BB
#TAVR
-Chronic, stable on echo.
- cath gradient6.5
# head feels funny -patient reported symptoms on 05/30/2024 difficulty describing symptom initially described as feeling anxious but then on further discussion it did not sound like anxiety. He almost felt like things were moving in his vision. No
other focal neurologic issues. Unclear if symptoms could have been related to vertigo questions were raised whether it could have been related to increased dosing of Toprol XL however patient's been maintained on Toprol-XL at 50 mg twice daily and
symptoms have resolved. Would continue Toprol-XL. Can monitor for recurrence. Head CT had no acute abnormality. Old infarct noted. additional evaluation as directed by primary team
#CAD
-Chronic, nonobstructive disease on cath 2019.
-stable by cath 05/28/24
#HTN
-Chronic, stable.
-Monitor with med adjustments.
#LBBB
-Left bundle branch block has been seen in the past, but seems to be intermittent.
Subjective/Interval History:
Weight up 0.5 kg after diuretics were held yesterday.
SaO2 92-93% on RA.
DATA:
Transthoracic Echocardiogram 05/25/2024:
CONCLUSIONS
Severely reduced left ventricular systolic function. Left ventricular ejection
fraction is 15-20%.
Global hypokinesis. Abnormal (paradoxical) septal motion consistent with right
ventricular (RV) volume overload and/or elevated RV end-diastolic pressure.
Right ventricular enlargement with reduced systolic function.
Well-seated, normally functioning bioprosthetic aortic valve (status post
TAVR).
Compared to the prior echo on 12/04/2023 left and right ventricular function
were normal on the prior study, this is a significant change in LV and RV
function.
CARDIAC CATH 05/28/24
CONCLUSIONS
1. Right dominant circulation with dense external calcification of the entire coronary tree with luminal irregularities throughout and a hazy, poorly defined lesion in the proximal to mid shaft of the left main coronary artery of unclear severity,
status post successful IVUS demonstrating dense calcification of the left main coronary artery but no discrete stenosis and a minimal luminal area of 8.1 mm�.
2. No ischemic source of new cardiomyopathy/HFrEF.
3. Moderately elevated filling pressures (LVEDP = 21 mmHg at 81.6 kg).
4. Status post #23 ANGIE S3 TAVR with a mean pullback gradient of 6.5 mmHg.
Physical Exam
Vital Signs/Labs
Vital Signs
Temp Pulse Resp BP Pulse Ox
97.6 F 115 20 110/86 91
05/30/24 07:05 05/30/24 07:05 05/30/24 07:05 05/30/24 07:05 05/30/24 08:49
05/29/24 05/30/24 05/31/24
06:59 06:59 06:59
Actual Weight 82.2 kg 81.4 kg
05/30/24 04:07
05/30/24 04:07
Magnesium 1.9 mg/dl (1.6-2.3) 05/30/24 04:07
Triglycerides 102 mg/dl (10-149) 05/25/24 04:31
LDL Cholesterol, Calc 40 mg/dl 05/25/24 04:31
VLDL Cholesterol, Calc 20 mg/dl (0-30) 05/25/24 04:31
HDL Cholesterol 53 mg/dl 05/25/24 04:31
05/24/24
15:56
Ovn-N-Kvnwwcbnszn Pept 6000
Physical Exam
Constitutional: No acute distress
Cardiovascular: Rhythm/rate is irregular
Respiratory: Wheeze Absent and Rhonchi Absent
GI: Soft and Non tender
Neuro/Psych: Alert and Oriented
Data Reviewed
-
Date of Service: May 30, 2024
Medical Decision Making: Reviewed Test Results
EKG: Other (telemetry reviewed )
Medical Tests (PFT, Pathology etc): Image Personally Visualized and interpreted
Labs: Labs Reviewed by me
[2024-05-30] MEDS: PROSCAR 5 MG PO (10:05)
[2024-05-30] MEDS: LIPITOR 20 MG PO (10:05)
[2024-05-30] MEDS: PROTONIX 40 MG PO (10:05)
[2024-05-30] MEDS: MIRALAX 17 GRAMS PO (10:05)
[2024-05-30] MEDS: ELIQUIS 5 MG PO ×2 (10:05→19:31)
[2024-05-30] MEDS: SENOKOT-S 1 TABLET PO ×2 (10:05→19:31)
[2024-05-30] MEDS: TOPROL XL 50 MG PO (10:06)
[2024-05-30] MEDS: LIDOCAINE 4% PATCH TOPICAL (10:16)
[2024-05-30] MEDS: TOPROL XL 25 MG PO (11:56)
--- NOTE | 2024-05-30 15:39 | CM ---
Reviewed chart. Met with Mr. Quinonez and his son to review discharge plans. He is feeling a little better. Will need to see his current functional level to see if he will have any skilled care needs. Prior to admission he resides with his son in
a one story home with four steps to enter. Prior to admission he ambulates with a rollator in the home and uses a single point cane in the community. He has a prescription plan. The discharge plan is to return home with his son and [facility]
verses SNF/Rehab. if indicated and approved by insurance when medically stable.
--- NOTE | 2024-05-30 18:41 | PTCARENOTE ---
Pt OOB to chair and up in room and halls with assistance. Pt is deconditioned and slightly unsteady and at risk to fall. Fall precautions in place, pt calls for assistance. Pt awake for most of the day, oriented X 3 with garbled, gravelly speech
confirmed as his baseline by his family. Telemetry shows atrial fib with BBB at rate of @100 at rest, up to 150 with activity, toprol dose increased today. SBP 97-110.
[2024-05-30] MEDS: TOPROL XL 75 MG PO (19:31)
--- NOTE | 2024-05-30 21:08 | PTCARENOTE ---
Patient received at change of shift out of bed to the chair. Offers no complaints at this time. Right groin site open to air, ecchymotic but soft. Pedal pulses weak but palpable. Patient denies chest pain. Afib on the monitor. Oxygen saturation 95%
on room air. Plan of care discussed. Call jang within reach. Care ongoing.
[2024-05-31] VITALS (30 sets, daily range): BP systolic 90–145; BP diastolic 71–113; PULSE 106–111; O2SAT 94–97; BMI 29.2
[2024-05-31 04:14] LABS: Hematocrit 40.9 % (39.0-52.0); Hemoglobin 13.8 g/dL (13.0-18.0); Mean Corp Hgb Conc. 33.7 g/dL (33.0-37.0); Mean Corpuscular Hgb 31.4 pg (27.0-31.0); Mean Platelet Volume 10.4 fL (7.4-10.4); Platelet Count 188 10^3/uL (130-400); Red Cell Dist. Width 14.8 % (11.5-14.5); White Blood Cell Count 8.6 10^3/uL (4.8-10.8)
[2024-05-31 04:38] LABS: Blood Urea Nitrogen 27 mg/dl (9-20); Calcium 9.5 mg/dl (8.4-10.2); Carbon Dioxide 31 mmol/L (22-30); Chloride 88 mmol/L (98-107); Estimated Creatinine Clearance 43 ml/min; Glucose 172 mg/dl (70-99); Phosphorus 3.9 mg/dl (2.5-4.5); Potassium 4.8 mmol/L (3.5-5.1); Sodium 129 mmol/L (135-145); eGFR > 60.00
--- NOTE | 2024-05-31 06:48 | W.PN.HOSP.TC ---
Today's Communication/Plan
-
transferred to IMU closer monitoring
seizure medications as per Neuro
aspiration/seizure precautions
Hold diet/oral meds if mental status does not improve
Code status discussed with family who confirmed Full Code status
If respiratory/mental status worsens, patient to be intubated and transferred to ICU
Assessment / Plan
Assessment / Plan
Physical Exam
General: unresponsive
HEENT: Normocephalic, Moist mucous membranes and Atraumatic, hard of hearing
Respiratory: Clear to Auscultation Bilaterally, unresponsive but otherwise respiratory status appears stable on 2L nasal cannula non-labored respiration
Cardiac: S1/S2 and Irregularly Irregular Rhythm, systolic murmur /
GI: Soft, Non Tender, distended, bowel sounds present
Musculoskeletal: No Cyanosis, no edema lower ext's
Skin: Warm. Dry.
Neuro: nonverbal/unresponsive, some spontaneous eye movements noted, intact corneal reflexes b/l, intact gag reflex
Assessment/Plan
89 y/o male with past medical history of essential hypertension, hyperlipidemia, CAD, heart failure, chronic atrial fibrillation on Eliquis, BPH, GERD, HTN, HLD and HARLEY on CPAP presented to the ER with progressive shortness of breath, bilateral
lower extremity swelling and weight gain of about 30 lbs above his baseline. He also reported chest pressure. 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
Trop < 0.012
BNP 6000
EKG: Afib with LBBB
CXR
IMPRESSION:
Cardiomegaly.
Pulmonary vascularity slightly increased suggesting mild CHF with moderate right and small left pleural effusions.
05/31/24 Stroke Alert Unresponsiveness suspect post-ictal sz
Son reported assisting patient to toilet, was there 5-10 min, son checked on him and noted patient unresponsive wringing his hands but not answering. staff was called to assist, patient was transferred to bed but no response could be obtained
prompting stroke alert
Neuro eval appreciated, if stroke, patient would not be a candidate for TNK given current Eliquis use for afib
CT/CTA head noted no acute abn's, no large vessel occlusion or significant arterial stenosis
CTA neck noted 50% stenosis right and 30% stenosis left carotid
Loaded with Keppra and started on Keppra 500 mg IV Q12
MRI brain and EEG pending
seizure/aspiration precautions
transferred to IMU for closer monitoring
Acute Heart Failure Exacerbation
Presentation with shortness of breath and weight gain
Acute hypoxic respiratory failure
New biventricular failure, RV dilated
Hx TAVR
-IVU admit
-Lasix 40 mg IV BID--> increased on 05/25/24 to 80 mg IV BID --> on hold as per cardio
-TTE with new biventricular failure, RV dilated
-Toprol XL titrated up from 50 mg daily to 75 mg BID as per Cardio
-Verapamil stopped d/t reduced EF
-Cardiology consult appreciated
-Daily weights, strict I/O
Cardiac cath Tuesday05/28/24 appreciated
- extensive calcifications but no discrete stenosis, no ischemic source new cardiomyopathy
-TAVR stable
Lasix held and Eliquis resumed as per Cardio
Cholesterol Lowering Diet, Salt restriction, Fluid restriction 48 oz
05/29 Anxious, reporting 'jitteriness,' poor sleep overnight, feeling as though items were moving in his vision
-Possible metabolic encephalopathy vs hospital associate delirium vs post-anesthesia side effects recent cath and poor sleep overnight
-Low dose prn PO ativan, avoiding QT prolonging agents d/t QT prolongation
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
-symptoms since resolved
Nausea belching appetite loss likely d/t severe Constipation
-endorses bowel movements but small and hard
-abd X-ray appreciated moderate volume widespread colonic stool
-cont bowel regimen miralax, senna, colace
-symptoms since improved/resolved
Atrial fibrillation
QT prolongation
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 Metoprolol succinate increased given new RV failure above
-Continue Eliquis
-avoid QT prolonging agents as possible
Hyponatremia
monitor
fluid restriction
Coronary artery disease
s/p TAVR
# BPH
- finasteride continued
# GERD
- Protonix continued
# Hyperlipidemia
- Statin continued
# Hypertension
- cont metoprolol
# DVT prophylaxis
Eliquis
# CODE STATUS
- Full code
Total Critical Care Time__50___ minutes. I was immediately available to the patient and staff. I personally examined, reviewed labs, diagnostic images/reports, interpretations, treatment plans, discussed patient care with other providers and
patient's family sons Alfa, Madan Rutherford, Royer and daughter Mitzi (patient unable to make decisions), entered orders as appropriate and documented the medical record.
Anticipated Discharge: > 48 hours
Subjective/Interval History
-
Date of Service: May 31, 2024
Seen earlier in morning in no acute distress sitting up comfortably in bed. Overall reported feeling well. Son Alfa present during evaluation. Patient was stroke alert later in the day unresponsive sitting on toilet. CT CTA head and neck neg for
acute abn's. Though vital signs stable, patient remains unresponsive. Started on sz medications as per neuro recommendations. Patient was transferred to IMU for closer monitoring.
Objective Data
-
Labs:
Laboratory Results
05/31/24
03:50
WBC 8.6
Hgb 13.8
Hct 40.9
Plt Count 188
Sodium 129 L
Potassium 4.8
Chloride 88 L
Carbon Dioxide 31 H
BUN 27 H
Creatinine 1.1
Glucose 172 H
Calcium 9.5
Vital Signs:
Vital Signs
Temp Pulse Resp BP Pulse Ox
97.3 F 107 22 114/91 95
05/31/24 03:42 05/31/24 03:42 05/31/24 03:42 05/31/24 03:42 05/31/24 03:42
I&O
05/29/24 05/30/24 05/31/24
06:59 06:59 06:59
Intake Total 660 / 660 240 / 240 540 / 540
Output Total 500 / 500
Balance 160 / 160 240 / 240 540 / 540
[2024-05-31] MEDS: PROTONIX 40 MG PO (08:45)
[2024-05-31] MEDS: PROSCAR 5 MG PO (08:45)
[2024-05-31] MEDS: TOPROL XL 75 MG PO (08:46)
[2024-05-31] MEDS: SENOKOT-S 1 TABLET PO (08:47)
[2024-05-31] MEDS: ELIQUIS 5 MG PO (08:47)
[2024-05-31] MEDS: LIDOCAINE 4% PATCH 1 PATCH TOPICAL (08:47)
[2024-05-31] MEDS: LIPITOR 20 MG PO (08:48)
[2024-05-31] MEDS: MIRALAX 17 GRAMS PO (08:48)
--- NOTE | 2024-05-31 09:01 | W.PN.CD ---
Today's Communication / Plan
-
Overall appears comfortable. Tolerated increase in metoprolol to 75 mg twice daily. Some improvement in rate control now heart rates in low 100s. Some lower blood pressures last night. Unclear if there will be further room for titration we will
need to monitor blood pressures further on current dosing
Cost issues related to Farxiga as noted. Patient waiting for input from son if affordable would initiate Farxiga 10 mg a day.
Continue to monitor weights and assess needs for additional diuretics. Weights have ranged from 81.4 to 82 kg over the last couple days. Respiratory status appears stable
Impression / Plan
-
Impression/Plan: 89 y/o male with HTN, permanent atrial fibrillation, LBBB, severe aortic valve stenosis s/p TAVR (10/2019) and non-obstructive CAD on pre-TAVR cath admitted with new dilated cardiomyopathy and acute HFrEF.
#HFrEF/cardiomyopathy( nonischmeic )
-Acute on chronic HF, cardiomyopathy is new.
-LVEF 15-20%, previously normal.
- NONISCHEMIC CM - ETIOLOGY unclear may be post viral . tachycardia induced also a consideration
-Continue IV diuresis, which requires intensive monitoring
-Presentation weight 88.7 kg. Current weight weight has remained 81.4 to 82 kg over the last 5 days continue to assess need for diuretic
-Metoprolol succinate increased to 50 mg BID and verapamil stopped.
-Priced SGLT2i. Cost is $142 for 30 days. Sounds as if patient's pain is similar rate for other meds but wants to confer with his son. If cost okay would start Farxiga 10 mg daily
- GDMT limited by BP. BP incrased atrer stopping Verapamil. will titrate BB. Will add Farxiga if cost okay. Could consider low-dose spironolactone but patient currently having some issues with hyponatremia so we will hold off.
-Cardiac catheterization this admit without obstructive disease
#Atrial fibrillation
-Permanent.
-Rates suboptimal control
- metoprolol succinate 50 mg BID. ( verapamil discontinued due to CM)
-CHADS2-Vasc = 5 (CHF, HTN, Age x2, vascular disease).
-Therapeutic anticoagulation with apixaban 5 mg BID, on hold for cath today.
- ELIQUIS
- TITRATE BB
#TAVR
-Chronic, stable on echo.
- cath gradient6.5
# head feels funny
-Resolved
-patient reported symptoms on 05/30/2024 difficulty describing symptom initially described as feeling anxious but then on further discussion it did not sound like anxiety. He almost felt like things were moving in his vision. No other focal
neurologic issues. Unclear if symptoms could have been related to vertigo questions were raised whether it could have been related to increased dosing of Toprol XL however patient's been maintained on Toprol-XL at 50 mg twice daily and symptoms
have resolved. Would continue Toprol-XL. Can monitor for recurrence. Head CT had no acute abnormality. Old infarct noted. additional evaluation as directed by primary team
#CAD
-Chronic, nonobstructive disease on cath 2019.
-stable by cath 05/28/24
#LBBB
-Left bundle branch block has been seen in the past, but seems to be intermittent.
Subjective/Interval History:
Weight up 0.5 kg after diuretics were held yesterday.
SaO2 92-93% on RA.
DATA:
Transthoracic Echocardiogram 05/25/2024:
CONCLUSIONS
Severely reduced left ventricular systolic function. Left ventricular ejection
fraction is 15-20%.
Global hypokinesis. Abnormal (paradoxical) septal motion consistent with right
ventricular (RV) volume overload and/or elevated RV end-diastolic pressure.
Right ventricular enlargement with reduced systolic function.
Well-seated, normally functioning bioprosthetic aortic valve (status post
TAVR).
Compared to the prior echo on 12/04/2023 left and right ventricular function
were normal on the prior study, this is a significant change in LV and RV
function.
CARDIAC CATH 05/28/24
CONCLUSIONS
1. Right dominant circulation with dense external calcification of the entire coronary tree with luminal irregularities throughout and a hazy, poorly defined lesion in the proximal to mid shaft of the left main coronary artery of unclear severity,
status post successful IVUS demonstrating dense calcification of the left main coronary artery but no discrete stenosis and a minimal luminal area of 8.1 mm�.
2. No ischemic source of new cardiomyopathy/HFrEF.
3. Moderately elevated filling pressures (LVEDP = 21 mmHg at 81.6 kg).
4. Status post #23 ANGIE S3 TAVR with a mean pullback gradient of 6.5 mmHg.
Physical Exam
Vital Signs/Labs
Vital Signs
Temp Pulse Resp BP Pulse Ox
97.5 F 106 20 128/92 90
05/31/24 07:00 05/31/24 08:00 05/31/24 07:00 05/31/24 06:59 05/31/24 08:42
05/30/24 05/31/24 06/01/24
06:59 06:59 06:59
Actual Weight 81.4 kg 82 kg
05/31/24 03:50
05/31/24 03:50
Magnesium 2.0 mg/dl (1.6-2.3) 05/31/24 03:50
Triglycerides 102 mg/dl (10-149) 05/25/24 04:31
LDL Cholesterol, Calc 40 mg/dl 05/25/24 04:31
VLDL Cholesterol, Calc 20 mg/dl (0-30) 05/25/24 04:31
HDL Cholesterol 53 mg/dl 05/25/24 04:31
05/24/24
15:56
Xvw-D-Fhefcsbahir Pept 6000
Physical Exam
Constitutional: No acute distress
Cardiovascular: Rhythm/rate is irregular
Respiratory: Respiratory effort normal, Wheeze Absent and Crackles Absent
GI: Soft, Non tender and Normal bowel sounds
Neuro/Psych: Alert and Oriented
Data Reviewed
-
Date of Service: May 31, 2024
Medical Decision Making: Reviewed Test Results
EKG: Report Reviewed by me
X-Ray/CT/US/MRI/NUC/PET: Report Reviewed by me
Medical Tests (PFT, Pathology etc): Report Reviewed by me
Labs: Labs Reviewed by me
--- NOTE | 2024-05-31 09:22 | PTOTSP ---
pt currently requires supervision to no assistance to complete simple ADLs, functional transfers, ambulation. discussed with pt, son regarding compression socks; son able to assist if pt were to go home with socks. no acute OT needs identified at
this time, will sign off.
--- NOTE | 2024-05-31 13:38 | CM ---
Reviewed chart. Met with Mr. Morgan and his son to review discharge plans. Son states he is doing well and maybe able to go home soon. We reviewed [facility] and he is agreeable to [facility]. He has selected [facility]. Sent tt to
[facility] to make the referral. Sent referral. Prior to admission he resides with his son in a one story home with four steps to enter. Prior to admission he ambulates with a rollator in the home and uses a single point cane in the
community. He has a prescription plan and uses [facility]. Medical work-up in progress. The discharge plan is to return home with his son and [facility] when medically stable.
[2024-05-31 15:22] LABS: Glucose - Point of Care 121 mg/dl (70-99)
--- NOTE | 2024-05-31 15:37 | RR ---
A Rapid Response was called on this patient, please see Rapid Response form.
Pt called for assistance to go to bathroom, son helped him walk in using a walker. Son reported that he was in there for 5-10minutes, he checked on him, saw he was wringing his hands together but would not answer , PCT came in to to check on him and
got no response and called for help. Pt unresponsive but sitting on toilet, breathing with a pulse. Rapid response called , pt lifted to a chair then into his bed. Accucheck 121, BP 121/93, atrial fib at 107 with a pulse ox of 95% on 2L. Stroke
alert called, pt taken urgently to CT scan.
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
--- NOTE | 2024-05-31 16:22 | PTCARENOTE ---
See rapid response note. Pt returned from CT scan, still unresponsive. at his bedside. Temp 96.4, warm blankets placed on pt. Report called to IMU, pt transported in his bed to IMU by rapid repsonse team. Pt's so Alfa at bedside and updated.
[2024-05-31] MEDS: KEPPRA 1000 MG IV (16:24)
[2024-05-31 17:04] LABS: Hematocrit 40.4 % (39.0-52.0); Hemoglobin 13.8 g/dL (13.0-18.0); Mean Corp Hgb Conc. 34.2 g/dL (33.0-37.0); Mean Corpuscular Hgb 31.6 pg (27.0-31.0); Mean Corpuscular Volume 92.4 fL (80.0-94.0); Mean Platelet Volume 10.5 fL (7.4-10.4); Platelet Count 194 10^3/uL (130-400); Red Blood Cell Count 4.37 10^6/uL (4.70-6.10); Red Cell Dist. Width 15.1 % (11.5-14.5); White Blood Cell Count 6.4 10^3/uL (4.8-10.8)
[2024-05-31 17:06] LABS: B.E. 9.1 mmol/L; HCO3 34.2 mmol/L (21-28); O2 Saturation % 99.7 % (94-98); PCO2 47 mmHg (35-48); PO2 126 mmHg (83-108); pH 7.47 (7.35-7.45)
[2024-05-31 17:17] LABS: Lactic Acid 1.3 mmol/L (0.7-2.0)
[2024-05-31 17:19] LABS: ALT (SGPT) 20 U/L (0-50); AST (SGOT) 33 U/L (17-59); Albumin 3.9 g/dl (3.5-5.0); Alkaline Phosphatase 72 U/L (38-126); Blood Urea Nitrogen 27 mg/dl (9-20); Calcium 9.1 mg/dl (8.4-10.2); Carbon Dioxide 30 mmol/L (22-30); Chloride 87 mmol/L (98-107); Estimated Creatinine Clearance 52 ml/min; Glucose 132 mg/dl (70-99); Magnesium 1.9 mg/dl (1.6-2.3); Phosphorus 4.3 mg/dl (2.5-4.5); Potassium 4.6 mmol/L (3.5-5.1); Sodium 126 mmol/L (135-145); eGFR > 60.00
[2024-05-31 17:20] LABS: Creatine Phosphokinase 42 U/L (55-170)
[2024-05-31 17:55] LABS: TSH Reflex To Free T4 2.72 uIU/ml (0.47-4.68)
--- NOTE | 2024-05-31 18:00 | PTCARENOTE ---
Patient arrived to IMU unresponsive with stable VS. Afib on monitor. 2L NC, sats 98%. Rectal temp 98.2 so avani hugger not applied. NIH 35. Patient unable to participate in assessment. Noted left pupil responsive @2, right pupil responsive @1. CC#25
placed, labs drawn, seizure pads placed on bed. Mouth care done. Patients 3 children at bedside. Assessment remains the same. Discussed plan with Dr. Harris and Dr. Freed. Awaiting MRI and EEG. Will continue to closely monitor.
[2024-05-31 18:15] LABS: Vitamin B12 856 pg/ml (239-931)
[2024-05-31] MEDS: SENOKOT-S PO (19:22)
[2024-05-31] MEDS: TOPROL XL PO (19:22)
[2024-05-31] MEDS: KEPPRA 500 MG IV (20:04)
[2024-05-31 21:55] LABS: % Basophils 0.3 % (0-2); % Eosinophils 0.7 % (0-6); % Immature Granulocytes 0.5 % (0-0.5); % Lymphocytes 13.9 % (20.5-51.1); % Monocytes 6.9 % (1.7-9.3); % Neutrophils 77.7 % (42.2-75.2); Absolute Eosinophils 0.1 10^3/uL (0-0.7); Absolute Lymphocytes 1.1 10^3/uL (1.2-3.4); Absolute Monocytes 0.5 10^3/uL (0.1-0.6); Absolute Neutrophils 5.9 10^3/uL (1.4-6.5); Hematocrit 40.4 % (39.0-52.0); Hemoglobin 13.7 g/dL (13.0-18.0); Mean Corp Hgb Conc. 33.9 g/dL (33.0-37.0); Mean Corpuscular Hgb 31.5 pg (27.0-31.0); Mean Corpuscular Volume 92.9 fL (80.0-94.0); Mean Platelet Volume 10.4 fL (7.4-10.4); Nucleated Red Blood Cells % 0 % (-); Platelet Count 176 10^3/uL (130-400); Red Blood Cell Count 4.35 10^6/uL (4.70-6.10); Red Cell Dist. Width 15.1 % (11.5-14.5); White Blood Cell Count 7.6 10^3/uL (4.8-10.8)
[2024-05-31 22:06] LABS: Ammonia < 9 umol/L (9-30)
--- NOTE | 2024-05-31 23:00 | PTCARENOTE ---
Patient brought down for MRI around 2100 and woke up post study. Family at bedside. Patient lethargic but awakens to voice and able to talk. Family sent home so patient could rest. Will continue to monitor.
--- NOTE | 2024-05-31 23:48 | PTCARENOTE ---
Received patient's brain MRI results- electrical transmission engineer neurologist made aware.
[2024-06-01] VITALS (22 sets, daily range): BP systolic 81–121; BP diastolic 62–96; PULSE 102–115; O2SAT 93–94; BMI 29.5
[2024-06-01 00:54] LABS: Urine Albumin 2+ (Neg - Trace); Urine Bilirubin Negative (Negative); Urine Character Clear (Clear); Urine Color Yellow; Urine Glucose Negative (Negative); Urine Ketone Negative (Negative); Urine Leukocyte Negative (Negative); Urine Nitrite Negative (Negative); Urine Occult Blood 2+ (Negative); Urine Urobilinogen Negative (Neg - 1+)
[2024-06-01 01:44] LABS: Urine Amorphous Seen; Urine Squamous Cell >30 /LPF (Few); Urine Urothelial Cell >30 /LPF (FEW)
[2024-06-01 01:45] LABS: Urine Bacteria Few (Negative)
[2024-06-01 04:15] LABS: Hematocrit 40.4 % (39.0-52.0); Hemoglobin 13.5 g/dL (13.0-18.0); Mean Corp Hgb Conc. 33.4 g/dL (33.0-37.0); Mean Corpuscular Hgb 31.5 pg (27.0-31.0); Mean Corpuscular Volume 94.2 fL (80.0-94.0); Mean Platelet Volume 11.1 fL (7.4-10.4); Platelet Count 191 10^3/uL (130-400); Red Blood Cell Count 4.29 10^6/uL (4.70-6.10); White Blood Cell Count 8.1 10^3/uL (4.8-10.8)
[2024-06-01 04:46] LABS: Blood Urea Nitrogen 24 mg/dl (9-20); Calcium 9.2 mg/dl (8.4-10.2); Carbon Dioxide 31 mmol/L (22-30); Chloride 88 mmol/L (98-107); Estimated Creatinine Clearance 47 ml/min; Glucose 116 mg/dl (70-99); Magnesium 1.9 mg/dl (1.6-2.3); Phosphorus 4.3 mg/dl (2.5-4.5); Potassium 4.8 mmol/L (3.5-5.1); Sodium 131 mmol/L (135-145); eGFR > 60.00
--- NOTE | 2024-06-01 07:31 | W.PN.HOSP.TC ---
Today's Communication/Plan
-
seizure/aspiration precautions
permissive HTN <220/120, holding oral metoprolol, IV lopressor prn persistent HR>120
Eliquis on hold for acute stroke, 1 week per neuro
ST/PT/OT eval
cont keppra
Assessment / Plan
Assessment / Plan
Physical Exam
General: No acute distress, appears comfortable at this time
HEENT: Normocephalic, Moist mucous membranes and Atraumatic, hard of hearing
Respiratory: Clear to Auscultation Bilaterally, stable respiratory status appears stable on 2L nasal cannula non-labored respiration
Cardiac: S1/S2 and Irregularly Irregular Rhythm, systolic murmur 3/6
GI: Soft, Non Tender, distended, bowel sounds present
Musculoskeletal: No Cyanosis, no edema lower ext's
Skin: Warm. Dry.
Neuro: AOx3 conversant coherent, no facial asymmetry, 5/5 strength all ext's
Psych: calm
Assessment/Plan
89 y/o male with past medical history of essential hypertension, hyperlipidemia, CAD, heart failure, chronic atrial fibrillation on Eliquis, BPH, GERD, HTN, HLD and HARLEY on CPAP presented to the ER with progressive shortness of breath, bilateral
lower extremity swelling and weight gain of about 30 lbs above his baseline. He also reported chest pressure. On the day of presentation, he had been evaluated by his cake icer and packer, and sent to the emergency department for further evaluation.
Trop < 0.012
BNP 6000
EKG: Afib with LBBB
CXR
IMPRESSION:
Cardiomegaly.
Pulmonary vascularity slightly increased suggesting mild CHF with moderate right and small left pleural effusions.
05/31/24 Stroke Alert Unresponsiveness suspect post-ictal sz
Son reported assisting patient to toilet, was there 5-10 min, son checked on him and noted patient unresponsive wringing his hands but not answering. staff was called to assist, patient was transferred to bed but no response could be obtained
prompting stroke alert
CT/CTA head noted no acute abn's, no large vessel occlusion or significant arterial stenosis
CTA neck noted 50% stenosis right and 30% stenosis left carotid
Loaded with Keppra and started on Keppra 500 mg IV Q12
MRI brain noted 2 small foci acute stroke Left Temporal suspect reason for sz
Neuro consult appreciated Eliquis to remain on hold for 1 week d/t acute stroke
permissive HTN <220/120
prolonged post-ictal since resolved patient AOx3 conversant coherent
EEG pending
seizure/aspiration precautions
transferred to IMU for closer monitoring
ST/PT/OT evals requested
Acute Heart Failure Exacerbation
Presentation with shortness of breath and weight gain
Acute hypoxic respiratory failure
New biventricular failure, RV dilated
Hx TAVR
-IVU admit
-Lasix 40 mg IV BID--> increased on 05/25/24 to 80 mg IV BID --> on hold as per cardio
-TTE with new biventricular failure, RV dilated
-Toprol XL titrated up from 50 mg daily to 75 mg BID as per Cardio (Holding for permissive HTN as above, IV lopressor prn persistent HR>120)
-Verapamil stopped d/t reduced EF
-Cardiology consult appreciated
-Daily weights, strict I/O
Cardiac cath Tuesday05/28/24 appreciated
- extensive calcifications but no discrete stenosis, no ischemic source new cardiomyopathy
-TAVR stable
Eliquis on hold d/t acute stroke as above
Cholesterol Lowering Diet, Salt restriction, Fluid restriction 48 oz
05/29 Anxious, reporting 'jitteriness,' poor sleep overnight, feeling as though items were moving in his vision
-Possible metabolic encephalopathy vs hospital associate delirium vs post-anesthesia side effects recent cath and poor sleep overnight
-Low dose prn PO ativan, avoiding QT prolonging agents d/t QT prolongation
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
-symptoms since resolved
Nausea belching appetite loss likely d/t severe Constipation
-endorses bowel movements but small and hard
-abd X-ray appreciated moderate volume widespread colonic stool
-cont bowel regimen miralax, senna, colace
-symptoms since improved/resolved
Atrial fibrillation
QT prolongation
-COOK BOAT Verapamil stopped. Metoprolol succinate increased given new RV failure above (on hold permissive HTN as above)
-IV lopressor prn persistent HR>120
-Eliquis on hold d/t acute stroke as above
-avoid QT prolonging agents as possible
Hyponatremia
monitor
fluid restriction
Coronary artery disease
s/p TAVR
# BPH
- finasteride continued
# GERD
- Protonix continued
# Hyperlipidemia
- Statin continued
# Hypertension
- cont metoprolol
# DVT prophylaxis
Eliquis on hold d/t acute stroke as above, SCDs ordered
# CODE STATUS
- Full code
discussed with patient and patient's son Alfa
I spent a total of 50 minutes with the patient or on the floor. More than 50% of this time involved counseling and coordination of care.
Anticipated Discharge: > 48 hours
Subjective/Interval History
-
Date of Service: June 01, 2024
AOx3 conversant coherent this morning. Able to move all ext's 5/5 strength. Patient reports feeling well, eager to eat. undergoing eeg
Objective Data
-
Labs:
Laboratory Results
05/31/24 06/01/24
21:45 03:35
WBC 7.6 8.1
Hgb 13.7 13.5
Hct 40.4 40.4
Plt Count 176 191
Sodium 131 L
Potassium 4.8
Chloride 88 L
Carbon Dioxide 31 H
BUN 24 H
Creatinine 1.0
Glucose 116 H
Calcium 9.2
Vital Signs:
Vital Signs
Temp Pulse Resp BP Pulse Ox
97.6 F 97 19 108/84 95
06/01/24 05:24 06/01/24 06:00 06/01/24 06:00 06/01/24 06:00 06/01/24 06:00
I&O
05/31/24 06/01/24 06/02/24
06:59 06:59 06:59
Intake Total 540 / 540
Output Total 150 / 150
Balance 540 / 540 -150 / -150
--- NOTE | 2024-06-01 07:53 | W.PN.NEURO.1 ---
Today's Communication / Plan
-
.
Subjective/Objective
Subjective Data
Date of Service: June 01, 2024
Neurology follow-up note.
Mr. Quinonez reports no complaints. He admits to change in his speech and denied headache, prior seizures, change in strength or sensation.
He the patient has no recollection of the events yesterday.
Brain MRI�acute small left temporal lobe infarcts.
Routine EEG�normal for age.
Sodium�131
PMH: HFrEF/cardiomyopathy, permanent A-Fib, CAD, HTN, DLP, LBBB, OA, BPH, GERD, PUD, SNHL, ambulatory dysfunction, HARLEY,
PSH: R orbital surgery?, bioprosthetic TAVR, Vasectomy, left cataract surgery, lumbar laminectomy
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
All:NKDA
ROS: Positive for dysarthria, negative for change in vision, strength, chest pain
General: Well developed. In no acute distress.
Cardio: irregular rate. Extremities are without cyanosis or edema.
Neuro:
Mental Status: Awake, oriented to self, person, location, month, year. Impaired attention and preserved comprehension. Follows simple requests. Nonfluent.
Cranial Nerves: Orthophoric primary gaze. Pupils 3 mm, surgical. Extraocular movement intact. Visual ventura are full to confrontation, no facial weakness, poor hearing. Mild to moderate dysarthria.
Motor: No upper or lower extremity drift
Sensory: Preserved vibration at the ankles and impaired at the toes
Coordination: No dysmetria or tremor
Gait: deferred
Assessment and Plan:
I. Acute left MCA territory stroke. Likely etiology�embolic (recent BAR GAUGER AND LUBRICATOR TENDER, being off AC).
II. Probable symptomatic seizure
III. Encephalopathy, significantly improved
IV. Permanent A-Fib
- Seizure precaution
-Aspiration precautions
-Continue Keppra 500 mg twice daily
-Restart Eliquis in 1 week
-Continue aspirin 81 mg for secondary stroke prevention
- Outpatient neurology follow-up
-Case discussed with patient's sons present at bedside
I personally reviewed all radiology and labs along with past medical records pertinent to current medical problems. Total time spent in patient care is 35 minutes.
Thank you for allowing us to participate in the care of this patient. Please do not hesitate to contact us with any questions or concerns.
Objective Data
Vital Signs
Temp Pulse Resp BP Pulse Ox
36.4 C 97 19 108/84 95
06/01/24 05:24 06/01/24 06:00 06/01/24 06:00 06/01/24 06:00 06/01/24 06:00
Lab Results
06/01/24 03:35
06/01/24 03:35
Sodium 131 mmol/L (135-145) L 06/01/24 03:35
Potassium 4.8 mmol/L (3.5-5.1) 06/01/24 03:35
BUN 24 mg/dl (9-20) H 06/01/24 03:35
Glucose 116 mg/dl (70-99) H 06/01/24 03:35
Calcium 9.2 mg/dl (8.4-10.2) 06/01/24 03:35
Phosphorus 4.3 mg/dl (2.5-4.5) 06/01/24 03:35
Wht-A-Zpbptyzzand Pept 6000 pg/ml 05/24/24 15:56
LDL Cholesterol, Calc 40 mg/dl 05/25/24 04:31
Vitamin B12 856 pg/ml (239-931) 05/31/24 16:54
Patient Allergies
No Known Allergies Allergy (Verified 10/01/19 08:17)
Vital Signs and Labs
-
Vital Signs and Labs:
Vital Signs
Temp Pulse Resp BP Pulse Ox
36.7 C 106 27 103/78 93
06/01/24 11:30 06/01/24 14:00 06/01/24 14:00 06/01/24 14:00 06/01/24 14:00
Lab Results
06/01/24 03:35
06/01/24 03:35
Sodium 131 mmol/L (135-145) L 06/01/24 03:35
Potassium 4.8 mmol/L (3.5-5.1) 06/01/24 03:35
BUN 24 mg/dl (9-20) H 06/01/24 03:35
Glucose 116 mg/dl (70-99) H 06/01/24 03:35
Calcium 9.2 mg/dl (8.4-10.2) 06/01/24 03:35
Phosphorus 4.3 mg/dl (2.5-4.5) 06/01/24 03:35
Xmx-C-Vzucecufvre Pept 6000 pg/ml 05/24/24 15:56
LDL Cholesterol, Calc 40 mg/dl 05/25/24 04:31
Vitamin B12 856 pg/ml (411-931) 05/31/24 16:54
Medications
-
Medications:
Generic Name Dose Route Start Last Admin
Trade Name Freq PRN Reason Stop Dose Admin
Acetaminophen 650 mg 05/25/24 11:44 05/28/24 13:38
Acetaminophen 325 Mg Tablet PO 06/22/24 11:43 650 mg
Q4HPRN PRN Administration
pain
Apixaban 5 mg 05/24/24 21:11 05/31/24 08:47
Apixaban (Eliquis) 5 Mg Tablet PO 06/21/24 21:10 5 mg
BID RADHA Administration
Atorvastatin Calcium 20 mg 05/25/24 08:00 06/01/24 09:37
Atorvastatin (Lipitor) 20 Mg Tablet PO 06/22/24 07:59 20 mg
DAILY RADHA Administration
Bisacodyl 10 mg 05/29/24 15:23
Bisacodyl 10 Mg Rectal Suppository RECTAL 06/26/24 15:22
DAILYPRN PRN
constipation
Finasteride 5 mg 05/25/24 08:00 06/01/24 09:37
Finasteride 5 Mg Tablet PO 06/22/24 07:59 5 mg
DAILY RADHA Administration
Levetiracetam 500 mg 05/31/24 20:00 06/01/24 09:38
Levetiracetam (100 Mg/Ml) 500 Mg/5 Ml Vial IV 06/28/24 19:59 500 mg
Q12 RADHA Administration
Lidocaine 1 patch 05/30/24 06:05 06/01/24 10:12
Lidocaine 4% Topical Patch TOPICAL 06/27/24 06:04 Not Given
DAILY RADHA
Protocol
Lorazepam 0.5 mg 05/31/24 18:19
Lorazepam 2 Mg/Ml Vial IV 06/28/24 18:18
Q4HPRN PRN
seizure
Metoprolol Succinate 75 mg 05/30/24 20:00 06/01/24 09:39
Metoprolol 50 Mg Extended Release Tablet PO 06/27/24 19:59 Not Given
BID RADHA
Metoprolol Tartrate 5 mg 06/01/24 08:50
Metoprolol 5 Mg/5 Ml Vial IV 06/29/24 08:47
Q4HPRN PRN
HR > 120 persistent
Pantoprazole Sodium 40 mg 05/25/24 08:00 06/01/24 09:38
Pantoprazole 20 Mg Delayed Release Tablet PO 06/22/24 07:59 40 mg
DAILY RADHA Administration
Patch Removal 1 patch 05/30/24 20:00 05/31/24 20:05
Remove Lidocaine Patch REMOVE 06/27/24 19:59 1 patch
DAILY@2000 RADHA Administration
Polyethylene Glycol 17 grams 05/29/24 10:00 06/01/24 10:13
Polyethylene Glycol Powder 17 Grams Packet PO 06/26/24 09:59 Not Given
DAILY RADHA
Senna/Docusate Sodium 1 tablet 05/29/24 20:00 06/01/24 10:14
Docusate W/Senna (Sophia-Colace) Tablet PO 06/26/24 19:59 Not Given
BID RADHA
Sodium Chloride 0 flush 05/24/24 22:00 05/29/24 08:36
Sodium Chloride 0.9% (Flush) Syringe IV 06/21/24 21:59 1 flush
PER PROTOCOL RADHA Administration
Sodium Chloride 0.25 ml 05/31/24 18:24
Nss (Pf) 10 Ml Vial For Ativan 0.5 Mg Dose IV 06/28/24 18:23
Q4HPRN PRN
IV LORAZEPAM DILUTION
Home Medications
-
Home Medications
simvastatin 40 mg tablet 40 mg PO DAILY High cholesterol 05/02/10
pantoprazole 20 mg tablet,delayed release (Protonix) 40 mg PO DAILY Gastrointestinal issue 08/24/19
verapamil 120 mg tablet,extended release 120 mg PO QPM Arrhythmia 10/04/19
apixaban 5 mg tablet (Eliquis) 5 mg PO BID 05/24/24
calcium carbonate 550 mg-magnesium hydroxide 110 mg chewable tablet 2 tab PO Q8HPRN PRN gerd 05/24/24
cholecalciferol (vitamin D3) 25 mcg (1,000 unit) tablet (Vitamin D3) 25 mcg PO DAILY 05/24/24
finasteride 5 mg tablet 5 mg PO DAILY 05/24/24
therapeutic multivitamin 1 tab PO DAILY 05/24/24
metoprolol succinate 50 mg tablet,extended release 24 hr 50 mg PO DAILY 05/25/24
[2024-06-01] MEDS: LIPITOR 20 MG PO (09:37)
[2024-06-01] MEDS: PROSCAR 5 MG PO (09:37)
[2024-06-01] MEDS: PROTONIX 40 MG PO (09:38)
[2024-06-01] MEDS: KEPPRA 500 MG IV ×2 (09:38→21:13)
[2024-06-01] MEDS: TOPROL XL PO (09:39)
--- NOTE | 2024-06-01 10:00 | PTCARENOTE ---
Patient AAOx3, NIHSS 0. Patient does not remember anything that happened after going to the bathroom yesterday up until waking after MRI last night. Sons at bedside. VSS. Afib on monitor. Patient making needs known. Seizure pads in place. Will
closely monitor.
[2024-06-01] MEDS: LIDOCAINE 4% PATCH TOPICAL (10:12)
[2024-06-01] MEDS: MIRALAX PO (10:13)
[2024-06-01] MEDS: SENOKOT-S PO (10:14)
--- NOTE | 2024-06-01 10:27 | PTOTSP ---
Speech Therapy Evaluation:
Swallow:
Pt presents with grossly functional oropharyngeal swallow. Slightly prolonged and discoordinated mastication of regular solids, however suspect related to ill fitting dentures versus true oral dysphagia. No overt s/sx of aspiration across session.
WBC WNL. CXR on admission without c/f PNA.
Speech:
Pt's sons present at bedside, who reported acute change in pt's speech. Specifically, they reported pt sounds 'slurred,' consistent with clinical observation. Pt presented with moderate dysarthria characterized by reduced articulatory precision,
impacting overall speech intelligibility. Pt would benefit from ongoing ST for education on clear speech strategies and intervention for increased speech intelligibility.
Language:
Given small acute infarctions in L temporal lobe, the Quick Aphasia Battery (QAB) form 1 was administered. Scores were as follows:
Word comprehension: 10.00
Sentence comprehension: 10.00
Word findin.00
Grammatical construction: 9.75
Speech motor programmin.00
Repetition: 10.00
Readin.33
QAB overall: 9.50 - no aphasia
Impression: Pt earned an overall score of 9.50 on the QAB, indicative of no aphasia per parameters of this assessment. Of note, in conversation, pt occasionally expressed to CREDIT CARD INTERVIEWER that he could not understand. Question if related to hearing loss
versus reduced comprehension given infarct in L temporal lobe would be consistent with receptive aphasia/reduced auditory comprehension. Despite this, no deficits in comprehension observed during structured task.
Recommend:
1. Continue IDDSI Level 7 (regular) solids and thin liquids
2. Medications as tolerated
3. General aspiration and reflux precautions
4. CREDIT CARD INTERVIEWER to follow to monitor tolerance of diet and provide ongoing tx for speech.
--- NOTE | 2024-06-01 10:38 | EEG.RPT ---
Electroencephalogram Report
Recording
Date of EE06/01/24
Type of EEG: Routine
Length of EEG recordin minutes
Done with Video Recording: Yes
Patient Status: Inpatient
Recording Conditions: Awake, Drowsy and Asleep
Hyperventilation Performed: No
Photic Stimulation Performed: Yes
Report
LESS THAN 1 HOUR EEG INTERPRETATION:
Likely unremarkable EEG for age in wakefulness and sleep
CLINICAL CORRELATION:
Although normative values not been established for a person of this advanced age this study was unremarkable in its appearance.
An unremarkable EEG does not rule out a diagnosis of epilepsy. If clinical suspicion for seizure persists, a prolonged recording may be warranted.
Clinical correlation is advised.
METHODS:
A 21 channel digitized electroencephalogram (EEG) was performed in the Clinical Neurophysiology Laboratory. The 10/20 international system of electrode placement was used with ECG and lateral/vertical eye movements recorded. Video was recorded.
IMPRESSION(S):
Quality of study
Good
Background
Unremarkable anterior-posterior voltage gradient
Maximum: alpha frequency
No significant asymmetries of background activity noted
Sleep
Drowsiness present
Stage 2 present
Photic Stimulation
Failed to activate the record
ECG
Unremarkable
--- NOTE | 2024-06-01 12:22 | CM ---
Patient with Dx Stroke, Unresponsiveness suspect post-ictal Sz, HF. Patient transferred from IVU to IMU yesterday after RR. Room air. Receiving IV Keppra. EEG today. PT/OT recommend HH.
Met with patient, son Jameson that he lives with and another son Madan Rutherford;
the son states that he will be able to be with the patient at home all day.
He feels that he will be able to assist the patient at home without additional caregiver support.
Patient and sons agreed to a referral to [facility].
Referral to [facility] Liaison.
CM continuing to follow.
Plan home with VN, with son.
--- NOTE | 2024-06-01 13:18 | W.PN.CD ---
Addendum entered and electronically signed by Jesus Fournier MD 06/01/24 15:40:
I saw and examined the patient.
The ROOF BOLTER's note was reviewed and I agree with the note.
Comment:
89 y/o male with HTN, permanent atrial fibrillation, LBBB, severe aortic valve stenosis s/p TAVR (10/2019) and non-obstructive CAD on pre-TAVR cath admitted with new dilated cardiomyopathy and acute HFrEF. Course complicated by acute CVA on
05/31/2024. No complaints today.
Physical exam reveals a low rhythm, no murmurs, no lower extremity edema, clear lungs.
He had been on initiated on GDMT with BB this admission, but this is now on hold for permissive hypertension. Add back GDMT as able. Weight stable without diuretics.
Anticoagulation also on hold for 1 week after stroke. To be resumed 06/07/2024.
Rates in A-fib are fairly controlled right now. Can use metoprolol as needed for sustained heart rate over 120.
Original Note:
Today's Communication / Plan
-
continue to monitor BP, rates on tele.
Impression / Plan
-
Impression/Plan: 89 y/o male with HTN, permanent atrial fibrillation, LBBB, severe aortic valve stenosis s/p TAVR (10/2019) and non-obstructive CAD on pre-TAVR cath admitted with new dilated cardiomyopathy and acute HFrEF.
HFrEF/cardiomyopathy (nonischemic) - Acute on chronic HF, cardiomyopathy is new.
- LVEF 15-20%, previously normal.
- NONISCHEMIC CM s/p cath 05/28/24, possibly post viral or tachycardia induced.
- improved with diuresis, weight down to 182 lbs from 198 lbs on admit.
- GDMT limited by BP and acute CVA with permissive HTN per neurology. Consider spironolactone, Farxiga as an outpatient.
Atrial fibrillation - permanent.
- rates 90s to 100s.
- holding Toprol due to hypotension/permissive HTN s/p acute CVA.
- [id number] = 5 (CHF, HTN, Age x2, vascular disease).
- Anticoagulation with Eliquis 5 mg BID, on hold s/p acute CVA.
CVA - acute 05/31/24.
- neurology following.
- Brain MRI 2 small foci of restricted diffusion within the posterior left temporal lobe consistent with small acute infarctions.
- permissive HTN, holding all BP meds at this time.
- holding Eliquis.
TAVR - stable on echo.
CAD - nonobstructive disease on cath 2019.
- stable by cath 05/28/24.
LBBB - chronic, stable.
Subjective/Interval History:
feeling well w/o complaints.
DATA:
Transthoracic Echocardiogram 05/25/2024:
Severely reduced left ventricular systolic function. Left ventricular ejection
fraction is 15-20%.
Global hypokinesis. Abnormal (paradoxical) septal motion consistent with right
ventricular (RV) volume overload and/or elevated RV end-diastolic pressure.
Right ventricular enlargement with reduced systolic function.
Well-seated, normally functioning bioprosthetic aortic valve (status post
TAVR).
Compared to the prior echo on 12/04/2023 left and right ventricular function
were normal on the prior study, this is a significant change in LV and RV
function.
CARDIAC CATH 05/28/24
1. Right dominant circulation with dense external calcification of the entire coronary tree with luminal irregularities throughout and a hazy, poorly defined lesion in the proximal to mid shaft of the left main coronary artery of unclear severity,
status post successful IVUS demonstrating dense calcification of the left main coronary artery but no discrete stenosis and a minimal luminal area of 8.1 mm�.
2. No ischemic source of new cardiomyopathy/HFrEF.
3. Moderately elevated filling pressures (LVEDP = 21 mmHg at 81.6 kg).
4. Status post #23 ANGIE S3 TAVR with a mean pullback gradient of 6.5 mmHg.
Physical Exam
Vital Signs/Labs
Vital Signs
Temp Pulse Resp BP Pulse Ox
98.1 F 107 16 107/88 96
06/01/24 11:30 06/01/24 11:00 06/01/24 11:00 06/01/24 10:44 06/01/24 10:00
05/31/24 06/01/24 06/02/24
06:59 06:59 06:59
Actual Weight 180 lb 12.465 oz 182 lb 12.211 oz
06/01/24 03:35
06/01/24 03:35
Magnesium 1.9 mg/dl (1.6-2.3) 06/01/24 03:35
Triglycerides 102 mg/dl (10-149) 05/25/24 04:31
LDL Cholesterol, Calc 40 mg/dl 05/25/24 04:31
VLDL Cholesterol, Calc 20 mg/dl (0-30) 05/25/24 04:31
HDL Cholesterol 53 mg/dl 05/25/24 04:31
05/24/24
15:56
[id number]-Blcppbsblch Pept 6000
Physical Exam
Constitutional: No acute distress
EENT: Anicteric and Moist mucous membranes
Cardiovascular: Rhythm & rate is regular
Respiratory: Respiratory effort normal and Lungs clear to auscul.
GI: Soft, Non tender and Normal bowel sounds
Neuro/Psych: Alert and Oriented
Other: Skin (warm, dry)
Data Reviewed
-
Date of Service: June 01, 2024
Medical Decision Making: Reviewed Test Results
EKG: Tracing Personally Visualized and interpreted
Medical Tests (PFT, Pathology etc): Other (cath report as above)
Labs: Labs Reviewed by me
Old Records: Reviewed
--- NOTE | 2024-06-01 13:55 | VNURNOTE ---
Chart reviewed and updated obtained from DAVID Guthrie. Home Health Liaison called primary contact, daughter Nina. Briefly explained [facility] services. She verbalized understanding and requested that liaison speak with patient's son Alfa. She stated son
lives w/patient and would be his primary CG. Liaison met with patient at bedside to discuss [facility]therapy, visits, schedule and homebound status. Son not in room, went to cafeteria per patient. Patient oriented, answered questions
appropriately. Patient agreeable to VN, PT. He stated he had VN 'about 5 years ago.' Patient understands that visits at home will be 2-3 x per week to assess and teach medical management. [facility]
[2024-06-01] MEDS: SENOKOT-S 1 TABLET PO (21:12)
[2024-06-01] MEDS: LOW STRENGTH ASPIRIN 81 MG PO (21:12)
[2024-06-02] VITALS (17 sets, daily range): BP systolic 89–132; BP diastolic 67–96; BMI 30.8
--- NOTE | 2024-06-02 00:54 | PTCARENOTE ---
Pt received from previous RN. Pt is AAOx3. awake and visiting with his 3 children. Pt assisted back to bed by this RN, used walker. pt with strong and steady gait. denture care and oral care provided. NIH and neuro checks maintained as ordered. see
intervention on worklist. Assessment as documnted. Call light in reach.
[2024-06-02 05:51] LABS: Hematocrit 40.1 % (39.0-52.0); Hemoglobin 13.4 g/dL (13.0-18.0); Mean Corp Hgb Conc. 33.4 g/dL (33.0-37.0); Mean Corpuscular Hgb 31.5 pg (27.0-31.0); Mean Corpuscular Volume 94.1 fL (80.0-94.0); Mean Platelet Volume 10.3 fL (7.4-10.4); Platelet Count 199 10^3/uL (130-400); Red Blood Cell Count 4.26 10^6/uL (4.70-6.10); Red Cell Dist. Width 15.1 % (11.5-14.5); White Blood Cell Count 7.4 10^3/uL (4.8-10.8)
[2024-06-02 06:07] LABS: Blood Urea Nitrogen 23 mg/dl (9-20); Calcium 9.1 mg/dl (8.4-10.2); Carbon Dioxide 32 mmol/L (22-30); Chloride 90 mmol/L (98-107); Estimated Creatinine Clearance 54 ml/min; Glucose 139 mg/dl (70-99); Magnesium 1.8 mg/dl (1.6-2.3); Phosphorus 4.2 mg/dl (2.5-4.5); Sodium 130 mmol/L (135-145); eGFR > 60.00
[2024-06-02 06:12] LABS: Potassium 4.7 mmol/L (3.5-5.1)
--- NOTE | 2024-06-02 06:31 | W.PN.HOSP.TC ---
Today's Communication/Plan
-
resume metoprolol XL at 50 mg BID w/ holding parameters
IV lopressor prn HR persistent >120
out of bed to chair
wean O2 supplementation as tolerated
fluid restriction
daily weight I/O
cont Keppra, ASA
Assessment / Plan
Assessment / Plan
Physical Exam
General: No acute distress, appears comfortable at this time
HEENT: Normocephalic, Moist mucous membranes and Atraumatic, hard of hearing
Respiratory: Clear to Auscultation Bilaterally, stable respiratory status appears stable on 2L nasal cannula non-labored respiration
Cardiac: S1/S2 and Irregularly Irregular Rhythm, systolic murmur 3/6
GI: Soft, Non Tender, distended, bowel sounds present
Musculoskeletal: No Cyanosis, no edema lower ext's
Skin: Warm. Dry.
Neuro: AOx3 conversant coherent, no facial asymmetry, 5/5 strength all ext's
Psych: calm
Assessment/Plan
89 y/o male with past medical history of essential hypertension, hyperlipidemia, CAD, heart failure, chronic atrial fibrillation on Eliquis, BPH, GERD, HTN, HLD and HARLEY on CPAP presented to the ER with progressive shortness of breath, bilateral
lower extremity swelling and weight gain of about 30 lbs above his baseline. He also reported chest pressure. On the day of presentation, he had been evaluated by his security door installer, and sent to the emergency department for further evaluation.
Trop < 0.012
BNP 6000
EKG: Afib with LBBB
CXR
IMPRESSION:
Cardiomegaly.
Pulmonary vascularity slightly increased suggesting mild CHF with moderate right and small left pleural effusions.
05/31/24 Stroke Alert Unresponsiveness suspect post-ictal sz
Son reported assisting patient to toilet, was there 5-10 min, son checked on him and noted patient unresponsive wringing his hands but not answering. staff was called to assist, patient was transferred to bed but no response could be obtained
prompting stroke alert
CT/CTA head noted no acute abn's, no large vessel occlusion or significant arterial stenosis
CTA neck noted 50% stenosis right and 30% stenosis left carotid
Loaded with Keppra and started on Keppra 500 mg IV Q12
MRI brain noted 2 small foci acute stroke Left Temporal suspect reason for sz
Neuro consult appreciated Eliquis to remain on hold for 1 week d/t acute stroke (resume 06/07/24) baby aspirin started while patient is off Eliquis, discontinue ASA when Eliquis is resumed
completed permissive HTN <220/120, current goal normotensive
prolonged post-ictal since resolved patient AOx3 conversant coherent
EEG appreciated no acute abn's
seizure/aspiration precautions
transferred to IMU for closer monitoring
ST eval appreciated appropriate for regular diet thin liquids
PT/OT evals appreciated HH
Acute Heart Failure Exacerbation
Presentation with shortness of breath and weight gain
Acute hypoxic respiratory failure
New biventricular failure, RV dilated
Hx TAVR
-Lasix 40 mg IV BID--> increased on 05/25/24 to 80 mg IV BID --> since on hold as per cardio
-TTE with new biventricular failure, RV dilated
-Toprol XL resumed with completion permissive HTN as above, IV lopressor prn persistent HR>120
-Verapamil stopped d/t reduced EF
-Cardiology consult appreciated
-Daily weights, strict I/O
Cardiac cath Tuesday05/28/24 appreciated
- extensive calcifications but no discrete stenosis, no ischemic source new cardiomyopathy
-TAVR stable
Eliquis on hold d/t acute stroke as above (resume 06/07/24)
Cholesterol Lowering Diet, Salt restriction, Fluid restriction 48 oz
05/29 Anxious, reported 'jitteriness,' poor sleep overnight, feeling as though items were moving in his vision
-Possible metabolic encephalopathy vs hospital associate delirium vs post-anesthesia side effects recent cath and poor sleep overnight
-Low dose prn PO ativan, avoided QT prolonging agents d/t QT prolongation
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
-symptoms since resolved
Nausea belching appetite loss likely d/t severe Constipation
-endorsed bowel movements but small and hard
-abd X-ray appreciated moderate volume widespread colonic stool
-cont bowel regimen miralax, senna, colace
-symptoms since improved/resolved
Atrial fibrillation
QT prolongation
-CDL SERVICE TECHNICIAN Verapamil stopped as above. Metoprolol succinate increased given new RV failure above (held permissive HTN as above, since resumed)
-IV lopressor prn persistent HR>120
-Eliquis on hold d/t acute stroke as above
-avoid QT prolonging agents as possible
Hyponatremia
monitor
fluid restriction
Coronary artery disease
s/p TAVR
# BPH
- finasteride continued
# GERD
- Protonix continued
# Hyperlipidemia
- Statin continued
# Hypertension
- cont metoprolol
# DVT prophylaxis
Eliquis on hold d/t acute stroke as above, SCDs ordered
# CODE STATUS
- Full code
discussed with patient, patient's son Alfa, daughter Nina, and granddaughter Cintia
I spent a total of 50 minutes with the patient or on the floor. More than 50% of this time involved counseling and coordination of care.
Anticipated Discharge: 24 - 48 hours
Subjective/Interval History
-
Date of Service: June 02, 2024
No acute distress sitting up comfortably in chair. Reports general fatigue. Denies pain, lightheadedness, palpitations, or chest pain. Family son Alfa, daughter Nina, and granddaughter Cintia present during evaluation.
Objective Data
-
Labs:
Laboratory Results
06/02/24
04:58
WBC 7.4
Hgb 13.4
Hct 40.1
Plt Count 199
Sodium 130 L
Potassium 4.7
Chloride 90 L
Carbon Dioxide 32 H
BUN 23 H
Creatinine 1.0
Glucose 139 H
Calcium 9.1
Vital Signs:
Vital Signs
Temp Pulse Resp BP Pulse Ox
98.1 F 123 20 132/96 99
06/02/24 02:32 06/02/24 05:00 06/02/24 05:00 06/02/24 05:26 06/02/24 05:00
I&O
05/31/24 06/01/24 06/02/24
06:59 06:59 06:59
Intake Total 540 / 540
Output Total 150 / 150 450 / 450
Balance 540 / 540 -150 / -150 -450 / -450
[2024-06-02] MEDS: MIRALAX 17 GRAMS PO (08:53)
[2024-06-02] MEDS: PROTONIX 40 MG PO (08:53)
[2024-06-02] MEDS: SENOKOT-S 1 TABLET PO ×2 (08:53→20:26)
[2024-06-02] MEDS: LOW STRENGTH ASPIRIN 81 MG PO (08:54)
[2024-06-02] MEDS: PROSCAR 5 MG PO (08:54)
[2024-06-02] MEDS: LIPITOR 20 MG PO (08:54)
[2024-06-02] MEDS: LIDOCAINE 4% PATCH 1 PATCH TOPICAL (08:57)
[2024-06-02] MEDS: KEPPRA 500 MG IV ×2 (08:58→20:26)
[2024-06-02] MEDS: TOPROL XL 50 MG PO (09:22)
--- NOTE | 2024-06-02 09:57 | W.PN.CD ---
Today's Communication / Plan
-
Metoprolol resumed
Continue to hold Eliquis
Add GDMT as able
Impression / Plan
-
Impression/Plan: 89 y/o male with HTN, permanent atrial fibrillation, LBBB, severe aortic valve stenosis s/p TAVR (10/2019) and non-obstructive CAD on pre-TAVR cath admitted with new dilated cardiomyopathy and acute HFrEF. Course complicated by
acute CVA.
HFrEF/cardiomyopathy (nonischemic) - Acute on chronic HF, cardiomyopathy is new.
- LVEF 15-20%, previously normal.
- NONISCHEMIC CM s/p cath 05/28/24, possibly post viral or tachycardia induced.
- improved with diuresis, weight down to 182 lbs from 198 lbs on admit. Weight now stable without diuretics.
- GDMT
--Resume BB now that out of window for permissive HTN
--RACH/ARB/ARNI limited by BP
--SGLT2i cost prohibitive
--Consider adding Spironolactone in next 2 days pending BPs
- Reassess for ICD after 3 mos. May not want at advanced age.
Atrial fibrillation - permanent.
- rates 120s
- resume Metoprolol
- [id number] = 5 (CHF, HTN, Age x2, vascular disease).
- Anticoagulation with Eliquis 5 mg BID, on hold s/p acute CVA. Can be resumed 06/07/24
CVA - acute 05/31/24.
- neurology following.
- Brain MRI 2 small foci of restricted diffusion within the posterior left temporal lobe consistent with small acute infarctions.
- out of permissive HTN window
- holding Eliquis as above.
TAVR - stable on echo.
CAD - nonobstructive disease on cath 2019.
- stable by cath 05/28/24.
LBBB - chronic, stable.
Subjective/Interval History:
feeling well w/o complaints.
DATA:
Transthoracic Echocardiogram 05/25/2024:
Severely reduced left ventricular systolic function. Left ventricular ejection
fraction is 15-20%.
Global hypokinesis. Abnormal (paradoxical) septal motion consistent with right
ventricular (RV) volume overload and/or elevated RV end-diastolic pressure.
Right ventricular enlargement with reduced systolic function.
Well-seated, normally functioning bioprosthetic aortic valve (status post
TAVR).
Compared to the prior echo on 12/04/2023 left and right ventricular function
were normal on the prior study, this is a significant change in LV and RV
function.
CARDIAC CATH 05/28/24
1. Right dominant circulation with dense external calcification of the entire coronary tree with luminal irregularities throughout and a hazy, poorly defined lesion in the proximal to mid shaft of the left main coronary artery of unclear severity,
status post successful IVUS demonstrating dense calcification of the left main coronary artery but no discrete stenosis and a minimal luminal area of 8.1 mm�.
2. No ischemic source of new cardiomyopathy/HFrEF.
3. Moderately elevated filling pressures (LVEDP = 21 mmHg at 81.6 kg).
4. Status post #23 ANGIE S3 TAVR with a mean pullback gradient of 6.5 mmHg.
Physical Exam
Vital Signs/Labs
Vital Signs
Temp Pulse Resp BP Pulse Ox
98.2 F 120 28 117/91 95
06/02/24 07:27 06/02/24 09:00 06/02/24 09:00 06/02/24 08:00 06/02/24 09:27
06/01/24 06/02/24 06/03/24
06:59 06:59 06:59
Actual Weight 182 lb 12.211 oz 190 lb 7.67 oz
06/02/24 04:58
06/02/24 04:58
Magnesium 1.8 mg/dl (1.6-2.3) 06/02/24 04:58
Triglycerides 102 mg/dl (10-149) 05/25/24 04:31
LDL Cholesterol, Calc 40 mg/dl 05/25/24 04:31
VLDL Cholesterol, Calc 20 mg/dl (0-30) 05/25/24 04:31
HDL Cholesterol 53 mg/dl 05/25/24 04:31
05/24/24
15:56
Sao-P-Ximojlyukbp Pept 6000
Physical Exam
Constitutional: No acute distress and Comfortable
Cardiovascular: Rhythm/rate is irregular and S1S2 is normal
Respiratory: Respiratory effort normal and Lungs clear to auscul.
Data Reviewed
-
Date of Service: June 02, 2024
Medical Decision Making: Reviewed Test Results, Independent Historian Assessment, Test Interpretation and Review of Case with other Provider
EKG: Tracing Personally Visualized and interpreted
Echo: Report Reviewed by me
Labs: Labs Reviewed by me
[2024-06-02] MEDS: LOPRESSOR 5 MG IV (10:23)
--- NOTE | 2024-06-02 14:32 | PTCARENOTE ---
RN gave prn Lopressor one time thus far into shift for HR >120. Pt is oob to chair and toileting with walker and standby assistance to the bathroom. Pt has son at bedside visiting, RN updated son on plan of care for shift and medication review. Pt
right groin cath site dry/intact and ecchymotic as was previous shift assessments. Pt orders food and has good po intake. See MaR/flowsheets for further care details.
[2024-06-02] MEDS: TOPROL XL PO (20:36)
--- NOTE | 2024-06-02 22:24 | PTCARENOTE ---
Pt received from previous RN. Pt aaox3. sitting in chair, son at bedside visiting. NIH assessed per order, score 0. SCDs in use. hs oral care preformed. Assessment as documented. Call light in reach.
[2024-06-03] VITALS (12 sets, daily range): BP systolic 92–135; BP diastolic 65–114; BMI 30.1
[2024-06-03 04:50] LABS: Hematocrit 39.8 % (39.0-52.0); Hemoglobin 13.3 g/dL (13.0-18.0); Mean Corp Hgb Conc. 33.4 g/dL (33.0-37.0); Mean Corpuscular Hgb 31.3 pg (27.0-31.0); Mean Corpuscular Volume 93.6 fL (80.0-94.0); Mean Platelet Volume 10.9 fL (7.4-10.4); Platelet Count 209 10^3/uL (130-400); Red Blood Cell Count 4.25 10^6/uL (4.70-6.10); Red Cell Dist. Width 14.9 % (11.5-14.5); White Blood Cell Count 8.2 10^3/uL (4.8-10.8)
[2024-06-03 05:17] LABS: Blood Urea Nitrogen 20 mg/dl (9-20); Calcium 9.3 mg/dl (8.4-10.2); Carbon Dioxide 31 mmol/L (22-30); Chloride 92 mmol/L (98-107); Estimated Creatinine Clearance 53 ml/min; Glucose 128 mg/dl (70-99); Phosphorus 4.2 mg/dl (2.5-4.5); Potassium 4.8 mmol/L (3.5-5.1); Sodium 131 mmol/L (135-145); eGFR > 60.00
--- NOTE | 2024-06-03 07:53 | W.PN.HOSP.TC ---
Today's Communication/Plan
-
cont rate control, GDMT as per Cardio
IV lopressor prn HR persistent >120
out of bed to chair
wean O2 supplementation as tolerated, check nocturnal saturation study
fluid restriction
daily weight I/O
cont Keppra, ASA
Assessment / Plan
Assessment / Plan
Physical Exam
General: No acute distress, appears comfortable at this time
HEENT: Normocephalic, Moist mucous membranes and Atraumatic, hard of hearing
Respiratory: Clear to Auscultation Bilaterally, stable respiratory status appears stable on 2L nasal cannula non-labored respiration
Cardiac: S1/S2 and Irregularly Irregular Rhythm, systolic murmur 3/6
GI: Soft, Non Tender, distended, bowel sounds present
Musculoskeletal: No Cyanosis, no edema lower ext's
Skin: Warm. Dry.
Neuro: AOx3 conversant coherent, no facial asymmetry, 5/5 strength all ext's
Psych: calm
Assessment/Plan
89 y/o male with past medical history of essential hypertension, hyperlipidemia, CAD, heart failure, chronic atrial fibrillation on Eliquis, BPH, GERD, HTN, HLD and HARLEY on CPAP presented to the ER with progressive shortness of breath, bilateral
lower extremity swelling and weight gain of about 30 lbs above his baseline. He also reported chest pressure. On the day of presentation, he had been evaluated by his pellet mill operator, and sent to the emergency department for further evaluation.
Trop < 0.012
BNP 6000
EKG: Afib with LBBB
CXR
IMPRESSION:
Cardiomegaly.
Pulmonary vascularity slightly increased suggesting mild CHF with moderate right and small left pleural effusions.
05/31/24 Stroke Alert Unresponsiveness suspect post-ictal sz
Son reported assisting patient to toilet, was there 5-10 min, son checked on him and noted patient unresponsive wringing his hands but not answering. staff was called to assist, patient was transferred to bed but no response could be obtained
prompting stroke alert
CT/CTA head noted no acute abn's, no large vessel occlusion or significant arterial stenosis
CTA neck noted 50% stenosis right and 30% stenosis left carotid
Loaded with Keppra and started on Keppra 500 mg IV Q12
MRI brain noted 2 small foci acute stroke Left Temporal suspect reason for sz
Neuro consult appreciated Eliquis to remain on hold for 1 week d/t acute stroke (resume 06/07/24) baby aspirin started while patient is off Eliquis, discontinue ASA when Eliquis is resumed
completed permissive HTN <220/120, current goal normotensive
prolonged post-ictal since resolved patient AOx3 conversant coherent
EEG appreciated no acute abn's
seizure/aspiration precautions
transferred to IMU for closer monitoring
ST eval appreciated appropriate for regular diet thin liquids
PT/OT evals appreciated HH
Acute Heart Failure Exacerbation
Presentation with shortness of breath and weight gain
Acute hypoxic respiratory failure
New biventricular failure, RV dilated
Hx TAVR
-Lasix 40 mg IV BID--> increased on 05/25/24 to 80 mg IV BID --> since on hold as per cardio
-TTE with new biventricular failure, RV dilated
-Toprol XL resumed with completion permissive HTN as above, IV lopressor prn persistent HR>120
-Verapamil stopped d/t reduced EF
-Cardiology consult appreciated
-Daily weights, strict I/O
Cardiac cath Tuesday05/28/24 appreciated
- extensive calcifications but no discrete stenosis, no ischemic source new cardiomyopathy
-TAVR stable
Eliquis on hold d/t acute stroke as above (resume 06/07/24)
Cholesterol Lowering Diet, Salt restriction, Fluid restriction 48 oz
Acute Hypoxia
Requiring oxygen overnight since stroke
-wean O2 supplementation as tolerated
-hx HARLEY, patient's son reports insurance determined patient no longer needs CPAP
-Check nocturnal oxygenation
05/29 Anxious, reported 'jitteriness,' poor sleep overnight, feeling as though items were moving in his vision
-Possible metabolic encephalopathy vs hospital associate delirium vs post-anesthesia side effects recent cath and poor sleep overnight
-Low dose prn PO ativan, avoided QT prolonging agents d/t QT prolongation
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
-symptoms since resolved
Nausea belching appetite loss likely d/t severe Constipation
-endorsed bowel movements but small and hard
-abd X-ray appreciated moderate volume widespread colonic stool
-cont bowel regimen miralax, senna, colace
-symptoms since improved/resolved
Atrial fibrillation
QT prolongation
-INFORMATICA MDM ARCHITECT Verapamil stopped as above. Metoprolol succinate increased given new RV failure above (held permissive HTN as above, since resumed)
-Cont Metoprolol XL 50 mg BID as per Cardio
-IV lopressor prn persistent HR>120
-Eliquis on hold d/t acute stroke as above
-avoid QT prolonging agents as possible
Hyponatremia
monitor
fluid restriction
Coronary artery disease
s/p TAVR
# BPH
- finasteride continued
# GERD
- Protonix continued
# Hyperlipidemia
- Statin continued
# Hypertension
- cont metoprolol
# DVT prophylaxis
Eliquis on hold d/t acute stroke as above, SCDs ordered
# CODE STATUS
- Full code
discussed with patient and, patient's son Alfa
I spent a total of 45 minutes with the patient or on the floor. More than 50% of this time involved counseling and coordination of care.
Anticipated Discharge: 24 - 48 hours
Subjective/Interval History
-
Date of Service: June 03, 2024
Objective Data
-
Labs:
Laboratory Results
06/03/24
04:32
WBC 8.2
Hgb 13.3
Hct 39.8
Plt Count 209
Sodium 131 L
Potassium 4.8
Chloride 92 L
Carbon Dioxide 31 H
BUN 20
Creatinine 1.0
Glucose 128 H
Calcium 9.3
Vital Signs:
Vital Signs
Temp Pulse Resp BP Pulse Ox
97.6 F 112 50 130/114 99
06/03/24 02:10 06/03/24 07:00 06/03/24 07:00 06/03/24 05:02 06/03/24 07:00
I&O
06/02/24 06/03/24 06/04/24
06:59 06:59 06:59
Intake Total 720 / 720
Output Total 450 / 450 1000 / 1000
Balance -450 / -450 -280 / -280
[2024-06-03] MEDS: LIDOCAINE 4% PATCH 1 PATCH TOPICAL (08:56)
[2024-06-03] MEDS: PROTONIX 40 MG PO (08:56)
[2024-06-03] MEDS: MIRALAX 17 GRAMS PO (08:56)
[2024-06-03] MEDS: PROSCAR 5 MG PO (08:57)
[2024-06-03] MEDS: LIPITOR 20 MG PO (08:57)
[2024-06-03] MEDS: SENOKOT-S 1 TABLET PO ×2 (08:58→21:02)
[2024-06-03] MEDS: KEPPRA 500 MG PO ×2 (08:58→21:02)
[2024-06-03] MEDS: LOW STRENGTH ASPIRIN 81 MG PO (08:59)
[2024-06-03] MEDS: TOPROL XL 50 MG PO ×3 (09:00→21:02)
[2024-06-03] MEDS: TOPROL XL PO (09:22)
--- NOTE | 2024-06-03 10:08 | PTCARENOTE ---
Pt AAOx3 , OOB to BSC and then to chair. Took pills whole with out incident. Family at bedside
--- NOTE | 2024-06-03 11:04 | W.PN.CD ---
Addendum entered and electronically signed by Jesus Fournier MD 06/04/24 11:35:
He has not needed diuretics here. He should weigh himself daily at home and call us if weight goes up by 3 pounds overnight or 5 pounds in 1 week.
Original Note:
Today's Communication / Plan
-
Will go back down to metoprolol 50 mg twice daily. Doses have been frequently held for hypotension.
Possible DC tomorrow or Tuesday.
Impression / Plan
-
Impression/Plan: 89 y/o male with HTN, permanent atrial fibrillation, LBBB, severe aortic valve stenosis s/p TAVR (10/2019) and non-obstructive CAD on pre-TAVR cath admitted with new dilated cardiomyopathy and acute HFrEF. Course complicated by
acute CVA.
HFrEF/cardiomyopathy (nonischemic) - Acute on chronic HF, cardiomyopathy is new.
- LVEF 15-20%, previously normal.
- NONISCHEMIC CM s/p cath 05/28/24, possibly post viral or tachycardia induced.
- improved with diuresis, weight down to 182 lbs from 198 lbs on admit. Weight now stable without diuretics.
- GDMT
--Resume BB now that out of window for permissive HTN (would keep him at 50 mg twice daily due to low blood pressures)
--RACH/ARB/ARNI limited by BP
--SGLT2i cost prohibitive
--Consider adding Spironolactone as OP pending BPs
- Reassess for ICD after 3 mos. May not want at advanced age.
Atrial fibrillation - permanent.
- rates 100s
- resume Metoprolol as above
- [id number] = 5 (CHF, HTN, Age x2, vascular disease).
- Anticoagulation with Eliquis 5 mg BID, on hold s/p acute CVA. Can be resumed 06/07/24
CVA - acute 05/31/24.
- neurology following.
- Brain MRI 2 small foci of restricted diffusion within the posterior left temporal lobe consistent with small acute infarctions.
- out of permissive HTN window
- holding Eliquis as above.
TAVR - stable on echo.
CAD - nonobstructive disease on cath 2019.
- stable by cath 05/28/24.
LBBB - chronic, stable.
Subjective/Interval History:
feeling well w/o complaints.
DATA:
Transthoracic Echocardiogram 05/25/2024:
Severely reduced left ventricular systolic function. Left ventricular ejection
fraction is 15-20%.
Global hypokinesis. Abnormal (paradoxical) septal motion consistent with right
ventricular (RV) volume overload and/or elevated RV end-diastolic pressure.
Right ventricular enlargement with reduced systolic function.
Well-seated, normally functioning bioprosthetic aortic valve (status post
TAVR).
Compared to the prior echo on 12/04/2023 left and right ventricular function
were normal on the prior study, this is a significant change in LV and RV
function.
CARDIAC CATH 05/28/24
1. Right dominant circulation with dense external calcification of the entire coronary tree with luminal irregularities throughout and a hazy, poorly defined lesion in the proximal to mid shaft of the left main coronary artery of unclear severity,
status post successful IVUS demonstrating dense calcification of the left main coronary artery but no discrete stenosis and a minimal luminal area of 8.1 mm�.
2. No ischemic source of new cardiomyopathy/HFrEF.
3. Moderately elevated filling pressures (LVEDP = 21 mmHg at 81.6 kg).
4. Status post #23 ANGIE S3 TAVR with a mean pullback gradient of 6.5 mmHg.
Physical Exam
Vital Signs/Labs
Vital Signs
Temp Pulse Resp BP Pulse Ox
97.3 F 95 23 93/71 96
06/03/24 07:55 06/03/24 10:00 06/03/24 08:46 06/03/24 10:00 06/03/24 10:00
06/02/24 06/03/24 06/04/24
06:59 06:59 06:59
Actual Weight 190 lb 7.67 oz 186 lb 4.65 oz
06/03/24 04:32
06/03/24 04:32
Magnesium 2.0 mg/dl (1.6-2.3) 06/03/24 04:32
Triglycerides 102 mg/dl (10-149) 05/25/24 04:31
LDL Cholesterol, Calc 40 mg/dl 05/25/24 04:31
VLDL Cholesterol, Calc 20 mg/dl (0-30) 05/25/24 04:31
HDL Cholesterol 53 mg/dl 05/25/24 04:31
05/24/24
15:56
[id number] Pept 6000
Physical Exam
Constitutional: No acute distress and Comfortable
Cardiovascular: Pedal edema is absent, Rhythm/rate is irregular and S1S2 is normal
Respiratory: Respiratory effort normal and Lungs clear to auscul.
Data Reviewed
-
Date of Service: June 03, 2024
Medical Decision Making: Reviewed Test Results, Independent Historian Assessment, Test Interpretation and Review of Case with other Provider
EKG: Tracing Personally Visualized and interpreted
Echo: Report Reviewed by me
X-Ray/CT/US/MRI/NUC/PET: Report Reviewed by me
Labs: Labs Reviewed by me
--- NOTE | 2024-06-03 23:20 | PTCARENOTE ---
Pt AAOx3 some garble speech that is known. Pt needing 2Lnc at HS, SPO2 dropping to 86% now 94% on 2L. Vitals stable at this time. Pt had no complaints at this time. Call jang within reach.
[2024-06-04] VITALS (11 sets, daily range): BP systolic 82–129; BP diastolic 57–105; PULSE 99; O2SAT 95
[2024-06-04 05:03] LABS: Hemoglobin 13.4 g/dL (13.0-18.0); Mean Corp Hgb Conc. 32.7 g/dL (33.0-37.0); Mean Corpuscular Volume 94.9 fL (80.0-94.0); Mean Platelet Volume 10.6 fL (7.4-10.4); Platelet Count 224 10^3/uL (130-400); Red Blood Cell Count 4.32 10^6/uL (4.70-6.10); Red Cell Dist. Width 14.9 % (11.5-14.5); White Blood Cell Count 8.1 10^3/uL (4.8-10.8)
[2024-06-04 05:28] LABS: Blood Urea Nitrogen 23 mg/dl (9-20); Calcium 9.3 mg/dl (8.4-10.2); Carbon Dioxide 32 mmol/L (22-30); Chloride 91 mmol/L (98-107); Estimated Creatinine Clearance 53 ml/min; Glucose 153 mg/dl (70-99); Potassium 5.2 mmol/L (3.5-5.1); Sodium 131 mmol/L (135-145); eGFR > 60.00
--- NOTE | 2024-06-04 05:44 | PTCARENOTE ---
Pt competed Nocturnal- trend completed by RT.
[2024-06-04] MEDS: MIRALAX 17 GRAMS PO (08:34)
[2024-06-04] MEDS: LIDOCAINE 4% PATCH 1 PATCH TOPICAL (08:34)
[2024-06-04] MEDS: SENOKOT-S 1 TABLET PO (08:35)
[2024-06-04] MEDS: TOPROL XL 50 MG PO (08:35)
[2024-06-04] MEDS: PROTONIX 40 MG PO (08:35)
[2024-06-04] MEDS: PROSCAR 5 MG PO (08:36)
[2024-06-04] MEDS: LIPITOR 20 MG PO (08:36)
[2024-06-04] MEDS: KEPPRA 500 MG PO (08:36)
[2024-06-04] MEDS: LOW STRENGTH ASPIRIN 81 MG PO (08:36)
--- NOTE | 2024-06-04 08:55 | W.PN.HOSP.TC ---
Today's Communication/Plan
-
Discharge today
Assessment / Plan
Assessment / Plan
Physical Exam
General: No acute distress, appears comfortable at this time
HEENT: Normocephalic, Moist mucous membranes and Atraumatic, hard of hearing
Respiratory: Clear to Auscultation Bilaterally, ON ROOM AIR
Cardiac: S1/S2 and Irregularly Irregular Rhythm, systolic murmur 3/6
GI: Soft, Non Tender, distended, bowel sounds present
Musculoskeletal: No Cyanosis, no edema lower ext's
Skin: Warm. Dry.
Neuro: AOx3 conversant coherent, no facial asymmetry, 5/5 strength all ext's
Psych: calm
Assessment/Plan
89 y/o male with past medical history of essential hypertension, hyperlipidemia, CAD, heart failure, chronic atrial fibrillation on Eliquis, BPH, GERD, HTN, HLD and HARLEY on CPAP presented to the ER with progressive shortness of breath, bilateral
lower extremity swelling and weight gain of about 30 lbs above his baseline. He also reported chest pressure. On the day of presentation, he had been evaluated by his hospital aide, and sent to the emergency department for further evaluation.
Trop < 0.012
BNP 6000
EKG: Afib with LBBB
CXR
IMPRESSION:
Cardiomegaly.
Pulmonary vascularity slightly increased suggesting mild CHF with moderate right and small left pleural effusions.
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
Probable symptomatic seizure
05/31/24 Stroke Alert Unresponsiveness suspect post-ictal sz
Son reported assisting patient to toilet, was there 5-10 min, son checked on him and noted patient unresponsive wringing his hands but not answering. staff was called to assist, patient was transferred to bed but no response could be obtained
prompting stroke alert
CT/CTA head noted no acute abn's, no large vessel occlusion or significant arterial stenosis
CTA neck noted 50% stenosis right and 30% stenosis left carotid
Loaded with Keppra and started on Keppra 500 mg IV Q12
Continue Keppra 500 mg twice daily
MRI brain noted 2 small foci acute stroke Left Temporal suspect reason for sz
Neuro consult appreciated Eliquis to remain on hold for 1 week d/t acute stroke (resume 06/07/24) baby aspirin started while patient is off Eliquis, discontinue ASA when Eliquis is resumed
completed permissive HTN <220/120, current goal normotensive
prolonged post-ictal since resolved patient AOx3 conversant coherent
EEG appreciated no acute abn's
seizure/aspiration precautions
transferred to IMU for closer monitoring
ST eval appreciated appropriate for regular diet thin liquids
PT/OT evals appreciated HH
Acute Heart Failure Exacerbation
HFrEF/cardiomyopathy (nonischemic) - Acute on chronic HF, cardiomyopathy is new -- new LVEF 15 to 20% (previously normal)
Presentation with shortness of breath and weight gain
Acute hypoxic respiratory failure
New biventricular failure, RV dilated
Hx TAVR
-Lasix 40 mg IV BID--> increased on 05/25/24 to 80 mg IV BID --> since on hold as per cardio
-TTE with new biventricular failure, RV dilated
-Continue metoprolol 50 mg twice daily (uptitration limited by hypotension), IV lopressor prn persistent HR>120
-No RACH/ARB/ARNI due to low blood pressure, and SGLT2i is too expensive
-Verapamil stopped d/t reduced EF
-Cardiology consult appreciated
-Daily weights, strict I/O
Cardiac cath Tuesday05/28/24 appreciated
- extensive calcifications but no discrete stenosis, no ischemic source new cardiomyopathy
-TAVR stable
Eliquis on hold d/t acute stroke as above (resume Eliquis on 06/07/24)
Cholesterol Lowering Diet, Salt restriction, Fluid restriction 48 oz
-Follow-up with [facility] cardiology office in 4 weeks -- ICD consideration outpatient
Acute Hypoxia
Requiring oxygen overnight since stroke
Hypoxia RESOLVED
-wean O2 supplementation as tolerated
-hx HARLEY, patient's son reports insurance determined patient no longer needs CPAP
-Checked nocturnal oxygenation
05/29 Anxious, reported 'jitteriness,' poor sleep overnight, feeling as though items were moving in his vision
-Possible metabolic encephalopathy vs hospital associate delirium vs post-anesthesia side effects recent cath and poor sleep
-Low dose prn PO ativan, avoided QT prolonging agents d/t QT prolongation
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
-symptoms since resolved
Nausea belching appetite loss likely d/t severe Constipation
-endorsed bowel movements but small and hard
-abd X-ray appreciated moderate volume widespread colonic stool
-cont bowel regimen miralax, senna, colace
-symptoms since improved/resolved
Permanent Atrial fibrillation
QT prolongation
-NEUROSURGICAL NURSE Verapamil stopped as above. Metoprolol succinate increased given new RV failure above (held permissive HTN as above, since resumed)
-Cont Metoprolol XL 50 mg BID as per Cardio
-IV lopressor prn persistent HR>120
-Eliquis on hold d/t acute stroke as above
-avoid QT prolonging agents as possible
Hyponatremia
monitor
fluid restriction
Coronary artery disease
s/p TAVR
# BPH
- finasteride continued
# GERD
- Protonix continued
# Hyperlipidemia
- Statin continued
# Hypertension
- cont metoprolol
# DVT prophylaxis
Eliquis on hold d/t acute stroke as above, SCDs ordered
# CODE STATUS
- Full code
discussed with patient and, patient's son Alfa
More than 30 minutes spent in discharge including
Final examination of the patient
Summarizing hospital stay
Instructions for continuing care to all relevant caregivers
Preparation of discharge records, prescriptions, and referral forms
Total time spent (in minutes): 37
Anticipated Discharge: Today
Subjective/Interval History
-
Date of Service: June 04, 2024
Patient was seen and examined. He denied any new symptoms or complaints.
Objective Data
-
Labs:
Laboratory Results
06/04/24
04:47
WBC 8.1
Hgb 13.4
Hct 41.0
Plt Count 224
Sodium 131 L
Potassium 5.2 H
Chloride 91 L
Carbon Dioxide 32 H
BUN 23 H
Creatinine 1.0
Glucose 153 H
Calcium 9.3
Vital Signs:
Vital Signs
Temp Pulse Resp BP Pulse Ox
97.4 F 124 19 125/116 94
06/04/24 07:58 06/04/24 08:35 06/04/24 06:00 06/04/24 08:35 06/04/24 06:00
I&O
06/03/24 06/04/24 06/05/24
06:59 06:59 06:59
Intake Total 720 / 720 120 / 120
Output Total 1000 / 1000 400 / 400
Balance -280 / -280 -280 / -280
--- NOTE | 2024-06-04 10:57 | PTCARENOTE ---
Pt AAOx3 with garbled speech which is base ine for pt, OOB to chair very sleepy today .
--- NOTE | 2024-06-04 11:23 | W.PN.CD ---
Today's Communication / Plan
-
Continue metoprolol 50 mg twice daily
Resume Eliquis on 06/07/24
Cardiology will sign off at this time. We will request follow-up with our office in 4 weeks.
Impression / Plan
-
Impression/Plan: 89 y/o male with HTN, permanent atrial fibrillation, LBBB, severe aortic valve stenosis s/p TAVR (10/2019) and non-obstructive CAD on pre-TAVR cath admitted with new dilated cardiomyopathy and acute HFrEF. Course complicated by
acute CVA.
HFrEF/cardiomyopathy (nonischemic) - Acute on chronic HF, cardiomyopathy is new.
- LVEF 15-20%, previously normal.
- NONISCHEMIC CM s/p cath 05/28/24, possibly post viral or tachycardia induced.
- improved with diuresis, weight down to 182 lbs from 198 lbs on admit. Weight now stable without diuretics.
- GDMT
--Continue metoprolol 50 mg twice daily (uptitration limited by hypotension)
--RACH/ARB/ARNI limited by BP
--SGLT2i cost prohibitive
--Consider adding Spironolactone as OP pending BPs
- Reassess for ICD after 3 mos. May not want at advanced age.
Atrial fibrillation - permanent.
- rates 100s
- Metoprolol as above
- [id number] = 5 (CHF, HTN, Age x2, vascular disease).
- Anticoagulation with Eliquis 5 mg BID, on hold s/p acute CVA. Can be resumed 06/07/24
CVA - acute 05/31/24.
- neurology following.
- Brain MRI 2 small foci of restricted diffusion within the posterior left temporal lobe consistent with small acute infarctions.
- out of permissive HTN window
- holding Eliquis as above.
TAVR - stable on echo.
CAD - nonobstructive disease on cath 2019.
- stable by cath 05/28/24.
LBBB - chronic, stable.
Subjective/Interval History:
feeling well w/o complaints.
DATA:
Transthoracic Echocardiogram 05/25/2024:
Severely reduced left ventricular systolic function. Left ventricular ejection
fraction is 15-20%.
Global hypokinesis. Abnormal (paradoxical) septal motion consistent with right
ventricular (RV) volume overload and/or elevated RV end-diastolic pressure.
Right ventricular enlargement with reduced systolic function.
Well-seated, normally functioning bioprosthetic aortic valve (status post
TAVR).
Compared to the prior echo on 12/04/2023 left and right ventricular function
were normal on the prior study, this is a significant change in LV and RV
function.
CARDIAC CATH 05/28/24
1. Right dominant circulation with dense external calcification of the entire coronary tree with luminal irregularities throughout and a hazy, poorly defined lesion in the proximal to mid shaft of the left main coronary artery of unclear severity,
status post successful IVUS demonstrating dense calcification of the left main coronary artery but no discrete stenosis and a minimal luminal area of 8.1 mm�.
2. No ischemic source of new cardiomyopathy/HFrEF.
3. Moderately elevated filling pressures (LVEDP = 21 mmHg at 81.6 kg).
4. Status post #23 ANGIE S3 TAVR with a mean pullback gradient of 6.5 mmHg.
Physical Exam
Vital Signs/Labs
Vital Signs
Temp Pulse Resp BP Pulse Ox
97.7 F 93 25 113/64 96
06/04/24 11:21 06/04/24 10:00 06/04/24 10:00 06/04/24 10:00 06/04/24 09:30
06/03/24 06/04/24 06/05/24
06:59 06:59 06:59
Actual Weight 186 lb 4.65 oz
06/04/24 04:47
06/04/24 04:47
Magnesium 2.0 mg/dl (1.6-2.3) 06/04/24 04:47
Triglycerides 102 mg/dl (10-149) 05/25/24 04:31
LDL Cholesterol, Calc 40 mg/dl 05/25/24 04:31
VLDL Cholesterol, Calc 20 mg/dl (0-30) 05/25/24 04:31
HDL Cholesterol 53 mg/dl 05/25/24 04:31
05/24/24
15:56
[id number]-Z-[id number] Pept 6000
Physical Exam
Constitutional: No acute distress and Comfortable
Cardiovascular: Pedal edema is absent, Rhythm/rate is irregular, S1S2 is normal and Murmur/rub/gallop absent
Respiratory: Respiratory effort normal and Lungs clear to auscul.
Data Reviewed
-
Date of Service: June 04, 2024
Medical Decision Making: Reviewed Test Results, Independent Historian Assessment, Test Interpretation and Review of Case with other Provider
EKG: Tracing Personally Visualized and interpreted
Echo: Report Reviewed by me
Labs: Labs Reviewed by me
[2024-06-04 13:40] LABS: Blood Urea Nitrogen 23 mg/dl (9-20); Estimated Creatinine Clearance 48 ml/min; Glucose 288 mg/dl (70-99)
[2024-06-04 13:41] LABS: Carbon Dioxide 31 mmol/L (22-30); Chloride 89 mmol/L (98-107); Potassium 5.2 mmol/L (3.5-5.1); Sodium 129 mmol/L (135-145); eGFR > 60.00
[2024-06-04 16:07] LABS: Glucose - Point of Care 148 mg/dl (70-99)
--- NOTE | 2024-06-04 18:02 | PTCARENOTE ---
Pt dc with son, dischargew instructions and med list
== END 2024-06-04 18:19 | disposition home health service (06) | DRG 286 ==
LOC: IMU 20:13
PROVIDERS: Internal Medicine; Internal Medicine Cardiovascular Disease; Nurse Practitioner; Registered Nurse; Student in an Organized Health Care Education/Training Program; ADMITTING PHYSICIAN Student in an Organized Health Care Education/Training Program; ATTENDING PHYSICIAN Hospitalist; CONSULT PHYSICIAN Psychiatry & Neurology Neurology; EMERGENCY PHYSICIAN Emergency Medicine; FAMILY PHYSICIAN Family Medicine
PROC: B240ZZ3 Ultrasonography of Single Coronary Artery, Intravascular (ICD-10-PCS; 2024-05-28)
PROC: 4A023N7 Measurement of Cardiac Sampling and Pressure, Left Heart, Percutaneous Approach (ICD-10-PCS; 2024-05-28)
PROC: B2111ZZ Fluoroscopy of Multiple Coronary Arteries using Low Osmolar Contrast (ICD-10-PCS; 2024-05-28)
DX: I11.0 Hypertensive heart disease with heart failure (principal); G93.41 Metabolic encephalopathy; I50.23 Acute on chronic systolic (congestive) heart failure; J96.01 Acute respiratory failure with hypoxia; I63.9 Cerebral infarction, unspecified; E87.1 Hypo-osmolality and hyponatremia; I48.21 Permanent atrial fibrillation; F05 Delirium due to known physiological condition; I42.8 Other cardiomyopathies; Z95.3 Presence of xenogenic heart valve
CPT/HCPCS: 36600; 70450; 70496; 70498; 70551; 71045; 74018; 80048; 80053; 80061; 81003; 81015; 82140; 82550; 82607; 82805; 82962; 83605; 83735; 83880; 84100; 84443; 84484; 85025; 85027; 85347; 92523; 92610; 92978; 93005; 93306; 93458; 94762; 95816; 96374; 97162; 97164; 97166; 97168; 97530; 97535; 99285; C1753; C1760; C1769; C1894; Q9967